=== PATIENT | female | born 1990 | race Caucasian/White ===

== ENCOUNTER 2018-02-13 05:11 | Emergency (ER) | payer OTHER, MEDICAID, SELFPAY ==
[2018-02-13 05:21] VITALS: BP 137/87; PULSE 79; RESP 16; TEMP 36.4; O2SAT 97; BMI 44.9
[2018-02-13] MEDS: DOXYCYCLINE HYCLATE 100 MG TABLET PO (06:01)
--- NOTE | 2018-02-13 06:13 | ED.URI ---
HPI - URI/Sore Throat General Chief Complaint: Upper Respiratory Symptoms Stated Complaint: right side jaw pain into ears and throat Time Seen by Provider: 02/13/18 05:16 Source: patient Mode of arrival: ambulatory Limitations: no limitations History of Present Illness HPI Narrative: 27-year-old nonsmoker presents with a chief complaint multiple upper respiratory complaints including runny nose, sinus congestion, right ear pain, right jaw pain, right throat pain. She was seen and evaluated at another facility few days ago and diagnosed with sinusitis and encouraged to take [id number] decongestants and antihistamines. She reports minimal relief. She has no fever or chills nor any purulent drainage. She denies any cough nor nausea or vomiting MD Complaint: sore throat, rhinorrhea, nasal congestion and sinus pain Onset (ago): minute(s) Duration: constant Severity: mild Relieving factors: nothing Exacerbating factors: nothing Description of mucous: clear Able to tolerate fluids by mouth: Yes Context: sick contacts Associated symptoms: rhinorrhea, nasal congestion and sore throat Treatments prior to arrival: cold medicine Related Data Home Medications Medication Instructions Recorded Confirmed levonorgestrel-ethinyl estrad 1 tab PO QDAY #0 11/14/16 [Vienva] propranolol 20 mg PO QPM #0 11/14/16 Previous Rx's Medication Instructions Recorded nitrofurantoin monohyd/m-cryst 100 mg PO BID #14 cap 11/14/16 [Macrobid] ondansetron [Zofran ODT] 4 mg SUBLINGUAL Q6HP PRN #20 odt 11/14/16 omeprazole 40 mg PO QAM #14 cap 11/26/16 doxycycline hyclate 100 mg PO BID #20 tab 02/13/18 Allergies Allergy/AdvReac Type Severity Reaction Status Date / Time amoxicillin [From AUGMENTIN] Allergy Unknown RASH Unverified 07/29/17 12:46 cefaclor [From CECLOR] Allergy Unknown JOINTS Unverified 07/29/17 12:46 SWELL clavulanic acid Allergy Unknown RASH Unverified 07/29/17 12:46 [From AUGMENTIN] ketorolac [From TORADOL] Allergy Unknown MIGRAINE Unverified 07/29/17 12:46 metoclopramide [From REGLAN] Allergy Unknown JOINTS Unverified 07/29/17 12:46 MOVE tramadol [TRAMADOL] Allergy Unknown MIGRAINE Unverified 07/29/17 12:46 Sulfa (Sulfonamide AdvReac Unknown PROJECTILE Unverified 07/29/17 12:46 Antibiotics) VOMITING [SULFA (SULFONAMIDE ANTIBIOTICS)] Review of Systems Review of Systems All systems reviewed & are unremarkable except as noted in HPI and below Constitutional Denies chills, Denies fever(s), Denies lethargy and Denies weakness Eyes Denies change in vision, Denies eye discharge, Denies irritation and Denies loss of vision ENT Ears, Nose, Mouth, and Throat: Denies change in voice, Reports facial pain, Denies neck pain, Reports post nasal drip, Reports sinus pressure and Reports sore throat Cardiovascular Denies chest pain, Denies irregular heart rhythm, Denies lightheadedness, Denies palpitations, Denies dyspnea, Denies dyspnea on exertion and Denies orthopnea Respiratory Denies cough, Denies dyspnea, Denies dyspnea on exertion and Denies wheezing Gastrointestinal Gastrointestinal: Denies abdominal pain, Denies change in bowel habits, Denies diarrhea, Denies nausea and Denies vomiting Genitourinary Denies hematuria, Denies flank pain, Denies urinary incontinence and Denies urinary urgency Musculoskeletal Denies neck pain Integumentary/Breasts Denies pruritus, Denies erythema, Denies rash and Denies wounds Neurologic Denies confusion, Denies loss of vision and Denies weakness Psychiatric Denies anxiety, Denies confusion, Denies depression, Denies homicidal ideation and Denies suicidal ideation Endocrine Denies palpitations Hematologic/Lymphatic Denies easy bruising Allergic/Immunologic Denies wheezing [facility] Social History Smoking Status: Never smoker Exam Narrative Exam Narrative: GEN: AOx3 and in mild distress EYES: Pupils are equal, round, and reactive to light and accommodation. Extraoccular muscles are intact bilaterally. There is no subconjunctival hemorrhage or exudate. ENT: Right TM is clear but has a mild effusion. There is no bulging, loss of landmarks or erythema. Clear postnasal drip noted but no pharyngeal erythema. Normal dental exam without widespread dental caries or any signs of obvious abscess. No tender lymphadenopathy there is some tenderness to palpation overlying frontal and maxillary sinuses CHEST: Lungs are clear to auscultation bilaterally and free of wheezes, rales, or rhonchi. Heart rate is regular rhythm, there are no murmurs, clicks, rubs, or gallops. There is no chest wall tenderness. ABD: Abdomen is soft and nontender. There is no guarding or rebound. Bowel sounds are normal in all 4 quadrants. There is no mass or organomegaly. EXT: Full painless ROM of all extremities with no loss of sensation or strength. SKIN: Warm, pink, and dry. No erythema or rash Initial Vital Signs Initial Vital Signs: Vital Signs Temperature 97.5 F L 02/13/18 05:21 Pulse Rate 79 02/13/18 05:21 Respiratory Rate 16 02/13/18 05:21 Blood Pressure 137/87 02/13/18 05:21 Pulse Oximetry 97 02/13/18 05:21 Course Orders Ordered: Discontinued Medications Doxycycline Hyclate (Vibramycin) 100 mg PO NOW ONE Stop: 02/13/18 05:31 Last Admin: 02/13/18 06:01 Dose: 100 mg Vital Signs - 8 hr 02/13/18 05:21 Temperature 97.5 F L Pulse Rate 79 Respiratory Rate 16 Blood Pressure 137/87 Pulse Oximetry 97 Discharge Plan Departure Patient Disposition: Home Clinical Impression: Sinusitis Instructions: DI for Sinusitis Activity Restrictions/Additional Instructions: *You have been diagnosed with [ acute sinusitis ] *What to do: *Take medications as directed: your prescription was electronically transmitted to the [facility] in [place] at your request *Follow up with your primary care provider in 2-3 days, call for an appointment. Let them know you were seen in the Emergency Department and that we ask that you be seen in follow up *Return to ER if you should have any new, worsening or concerning symptoms Prescriptions: New doxycycline hyclate 100 mg tablet 100 mg PO BID Qty: 20 RF: 0 No Action levonorgestrel-ethinyl estrad [Vienva] 1 EACH tablet 1 tab PO QDAY Qty: 0 RF: 0 propranolol 20 MG tablet 20 mg PO QPM Qty: 0 RF: 0 ondansetron [Zofran ODT] 4 MG tablet,disintegrating 4 mg Sublingual Q6HP PRNQty: 20 RF: 0 nitrofurantoin monohyd/m-cryst [Macrobid] 100 MG capsule 100 mg PO BID Qty: 14 RF: 0 omeprazole 40 MG capsule,delayed release(DR/EC) 40 mg PO QAM Qty: 14 RF: 0
== END 2018-02-13 06:16 | disposition home or self-care (01) ==
PROVIDERS: Emergency Provider Emergency Medicine
DX: J32.9 Chronic sinusitis, unspecified (principal)
CPT/HCPCS: 99282; 99283

== ENCOUNTER 2019-12-12 17:37 | Observation (INO) | payer OTHER, SELFPAY ==
[2019-12-12] VITALS (8 sets, daily range): BP systolic 126–130; BP diastolic 75–89; PULSE 86–98; RESP 20; TEMP 36.9; O2SAT 91–95; BMI 40.7
--- NOTE | 2019-12-12 18:08 | DI.RAD.S_ITS ---
PROCEDURE: XR CHEST 2V INDICATIONS: shortness of breath TECHNIQUE: 2 views of the chest were acquired. COMPARISON: None. FINDINGS: Surgical changes and devices: None. Lungs and pleura: Lungs are clear. No pleural effusions or pneumothorax. Mediastinum: Mediastinal contours are normal. Heart size is normal. Bones and chest wall: No suspicious bony abnormalities. Soft tissues appear unremarkable. IMPRESSION: Normal chest plain films, without an imaging explanation found for the patient's presenting history. Dictated by: José Miguel Latif M.D. on 12/12/2019 at 17:31 Approved by: José Miguel Latif M.D. on 12/12/2019 at 17:31
--- NOTE | 2019-12-12 20:40 | ED.GENADULT ---
HPI - General Adult General Chief complaint: Upper Respiratory Symptoms Stated complaint: concerns about a PE Time Seen by Provider: 12/12/19 20:02 Source: patient and family Mode of arrival: Ambulatory History of Present Illness HPI narrative: Patient here for multiple complaints. Denies any chest pain. Patient is with her child here being seen as a patient as well. Patient states 2 weeks of watery diarrhea, at least 2 weeks, has history of IBS. Also history of C diff due to antibiotic use in the past. Patient currently on antibiotics for tooth complaint. Patient denies any bloody diarrhea. No foul-smelling. Patient also complains 2 days of dry cough wheezing, seen by primary care/clinic today, coronavirus swab at 3:00 p.m.. Also given a shot of steroid as well. Patient has been using her inhaler without relief. Again, history of asthma. Also history of pulmonary embolism shortly after giving 10 months ago. Complete 4 months of anticoagulation. Patient states this morning she felt more short of breath than usual. Does not feel like her pulmonary embolism in the past. Sent here by the office for CT scan imaging. However she agrees with D-dimer is 1st. She would rather try D-dimer before getting a CT scan Related Data Home Medications Medication Instructions Recorded Confirmed clindamycin HCl 300 mg PO TID 12/13/19 12/13/19 levothyroxine 25 mcg PO DAILY 12/13/19 12/13/19 meloxicam 15 mg PO DAILY 12/13/19 12/13/19 propranolol 20 mg PO DAILY 12/13/19 12/13/19 rizatriptan 10 mg PO DAILY PRN 12/13/19 12/13/19 sertraline 100 mg PO DAILY 12/13/19 12/13/19 Allergies Allergy/AdvReac Type Severity Reaction Status Date / Time amoxicillin [From AUGMENTIN] Allergy Unknown RASH Verified 12/12/19 18:04 cefaclor [From CECLOR] Allergy Unknown JOINTS Verified 12/12/19 18:04 SWELL clavulanic acid Allergy Unknown RASH Verified 12/12/19 18:04 [From AUGMENTIN] ketorolac [From TORADOL] Allergy Unknown MIGRAINE Verified 12/12/19 18:04 metoclopramide [From REGLAN] Allergy Unknown JOINTS Verified 12/12/19 18:04 MOVE tramadol [TRAMADOL] Allergy Unknown MIGRAINE Verified 12/12/19 18:04 Sulfa (Sulfonamide AdvReac Unknown PROJECTILE Verified 12/12/19 18:04 Antibiotics) VOMITING [SULFA (SULFONAMIDE ANTIBIOTICS)] duloxetine [From Cymbalta] AdvReac Anxiety Verified 12/12/19 18:05 gabapentin AdvReac Swelling Verified 12/12/19 18:05 of the Eye pregabalin [From Lyrica] AdvReac Verified 12/12/19 18:05 Review of Systems Review of Systems Narrative: GENERAL: Denies chills, fatigue, malaise, fever, sweats. HEENT: Denies sinus pain, ear pain, sore throat, difficulty swallowing, dizziness. RESPIRATORY: Complains of dyspnea, cough, wheezing, denies hemoptysis, sputum. CARDIOVASCULAR: Denies chest pain, palpitations, orthopnea, edema, GASTROINTESTINAL: Denies nausea, vomiting, abdominal pain, complains of watery diarrhea, denies constipation, melena. : Denies dysuria, frequency, incontinence, hematuria, urinary retention. MUSCULOSKELETAL: denies weakness, joint pain, or bony pain SKIN: Denies rash, skin lesions, or other NEUROLOGIC: Denies weakness, headache, numbness, change in speech, confusion, seizures, incoordination. PSYCHIATRIC: No concerning psychosocial issues. ROS Unobtainable: All systems reviewed & are unremarkable except as noted in HPI and below Patient History Medical History Asthma exacerbation, mild (Acute) Community acquired pneumonia (Acute) Hx gestational diabetes (Acute) Morbid obesity (Chronic) Surgical History History of tonsillectomy and adenoidectomy (Acute) Hx of appendectomy (Acute) Hx of cholecystectomy (Acute) Family History Mother Hypertension Obesity Asthma Father Hypertension Diabetes mellitus Social History household members: spouse and children Smoking Status: Current every day smoker alcohol intake: never Smoking Status: Never smoker alcohol intake frequency: 0-2 drinks per day Substance Use Type: marijuana Exam Narrative Exam Narrative: GENERAL: patient appears stated age. Well-nourished, well-developed patient, in no distress, not toxic HEAD: Atraumatic. Normocephalic. EYES: Pupils equal round and reactive. Extraocular motions intact. No scleral icterus. No injection or drainage. ENT: Nose without bleeding, purulent drainage. Throat without erythema, tonsillar hypertrophy or exudate. Airway patent. NECK: Trachea midline. Non tender CARDIOVASCULAR: Regular rate and rhythm without murmurs, gallops, or rubs. RESPIRATORY: Breath sounds equal bilaterally. There is diffuse bilateral wheezes, no rales, or rhonchi. GASTROINTESTINAL: Abdomen soft, non-tender, nondistended. EXTREMITIES: No edema or joint tenderness. BACK: Nontender without deformity or crepitance. No flank tenderness. NEURO: AOx3. SKIN: No rash or erythema of visible areas PSYCH: Not anxious, is cooperative Initial Vital Signs Initial Vital Signs: Vital Signs Temperature 98.4 F 12/12/19 17:53 Pulse Rate 92 H 12/12/19 17:53 Respiratory Rate 20 12/12/19 17:53 Blood Pressure 126/89 12/12/19 17:53 Pulse Oximetry 94 12/12/19 17:53 Course Course Course Narrative: Patient tachypneic and dyspnea with exertion hallway room air Decision to Admit Date: 12/13/19 Decision to Admit time: 00:25 Orders Ordered: ED Orders 12/12/19 20:27 EKG-12 Lead Stat 12/12/19 20:55 Complete Blood Count AUTO DIFF Stat Comprehensive Metabolic Panel Stat D Dimer Stat Test Serum,Qual Stat Troponin & CK Cardiac Panel Stat 12/12/19 21:49 CT angio chest PE protocol Stat 12/12/19 22:45 Clostridium Difficile Tox PCR Stat Stool Culture Stat 12/13/19 00:35 Blood Culture Stat 12/13/19 00:46 Lactate (Lactic Acid) Stat Procalcitonin Stat 12/13/19 01:48 Arterial Blood Gas Stat Acetaminophen (Tylenol) 650 mg PO Q4HR PRN PRN Reason: Fever/Mild Pain (1-3) Albuterol (Proventil) 1.25 mg INH RTQ4HR PRN PRN Reason: Shortness Of Breath Or Wheezing Albuterol/Ipratropium (Duoneb) 3 ml INH RTQ4HR PRN PRN Reason: Shortness Of Breath Azithromycin (Zithromax) 500 mg PO DAILY KELSEY Sodium Chloride (Normal Saline 0.9%) 1,000 mls @ 100 mls/hr IV CONT [facility] Last Admin: 12/13/19 03:46 Dose: 100 mls/hr Documented by: FREDY Ceftriaxone Sodium/Dextrose (Rocephin) 1 gm in 50 mls @ 100 mls/hr IV Q24H KELSEY Last Admin: 12/13/19 04:07 Dose: 100 mls/hr Documented by: FREDY Ibuprofen (Advil) 600 mg PO Q6HR PRN PRN Reason: Fever/Mild Pain (1-3) Levothyroxine Sodium (Synthroid) 25 mcg PO QACBREAK KELSEY Naloxone HCl (Narcan) 0.2 mg IV Q2MIN PRN PRN Reason: Opiate Reversal Ondansetron HCl (Zofran) 4 mg IV Q8HR PRN PRN Reason: Nausea And Vomiting Propranolol HCl (Inderal) 20 mg PO DAILY [facility] Sertraline HCl (Zoloft) 100 mg PO DAILY [facility] Discontinued Medications Acetaminophen (Tylenol) 650 mg PO NOW ONE Stop: 12/12/19 21:28 Last Admin: 12/12/19 21:42 Dose: 650 mg Documented by: DEIRDRE Hydrocodone Bitart/Acetaminophen ([place] 5/325) 1 tab PO NOW ONE Stop: 12/13/19 00:07 Last Admin: 12/13/19 00:15 Dose: 1 tab Documented by: DEIRDRE Albuterol (Ventolin Hfa Prepack) 1 box [facility] [place] SEEINSTR ONE Stop: 12/12/19 20:21 Last Admin: 12/13/19 03:59 Dose: Not Given Documented by: FREDY Albuterol (Ventolin Hfa Prepack) 1 box [facility] [place] SEEINSTR ONE Stop: 12/12/19 20:25 Last Admin: 12/13/19 03:59 Dose: Not Given Documented by: FREDY Albuterol/Ipratropium (Duoneb) 3 ml INH NOW ONE Stop: 12/12/19 20:07 Last Admin: 12/13/19 03:59 Dose: Not Given Documented by: FREDY Albuterol/Ipratropium (Combivent Respimat) 2 puff INH NOW ONE Stop: 12/12/19 20:12 Last Admin: 12/13/19 04:00 Dose: Not Given Documented by: FREDY Albuterol/Ipratropium (Combivent Prepack) 1 box [facility] SEEINSTR ONE Stop: 12/12/19 20:19 Last Admin: 12/13/19 03:59 Dose: Not Given Documented by: FREDY Benzonatate (Tessalon Perles) 100 mg PO NOW ONE Stop: 12/12/19 21:28 Last Admin: 12/12/19 21:40 Dose: 100 mg Documented by: DEIRDRE Sodium Chloride (Normal Saline 0.9%) 1,000 mls @ 1,000 mls/hr IV BOLUS ONE Stop: 12/12/19 21:26 Last Infusion: 12/12/19 23:26 Dose: 1,000 mls/hr Documented by: Admin: 12/12/19 21:06 Dose: 1,000 mls/hr Documented by: DEIRDRE Levofloxacin (Levaquin) 750 mg in 150 mls @ 100 mls/hr IV Q24H KELSEY Last Admin: 12/13/19 04:00 Dose: Not Given Documented by: FREDY Ceftriaxone Sodium 500 mg/ (Dextrose) 50 mls @ 100 mls/hr IV Q24H KELSEY Morphine Sulfate (Morphine) 4 mg IV NOW ONE Stop: 12/13/19 01:36 Last Admin: 12/13/19 02:09 Dose: 4 mg Documented by: DEIRDRE Ondansetron HCl (Zofran Odt) 4 mg SL NOW ONE Stop: 12/13/19 00:07 Last Admin: 12/13/19 00:11 Dose: 4 mg Documented by: DEIRDRE Reevaluation(s) Reevaluation #1: Patient 92% room air but dyspneic and tachypneic on ambulation in the hallway Time: 00:25 Consultations Consultation #1: Spoke with [facility] sam raya, was wanting to wait for coronavirus results before admitting patient She will start antibiotics when the patient arrives on floor Time: 02:23 Vital Signs Vital signs: Vital Signs - 8 hr 12/12/19 21:15 12/12/19 21:30 12/12/19 22:00 Pulse Rate 86 98 H 95 H Blood Pressure Pulse Oximetry 92 93 92 12/12/19 22:30 12/12/19 22:38 12/12/19 23:00 Pulse Rate 92 H 90 Blood Pressure 130/75 Pulse Oximetry 95 92 91 12/13/19 00:22 12/13/19 00:30 12/13/19 01:00 Pulse Rate 80 79 88 Blood Pressure Pulse Oximetry 94 93 92 12/13/19 01:30 12/13/19 02:00 12/13/19 02:11 Pulse Rate 73 90 78 Blood Pressure 109/57 L Pulse Oximetry 92 89 L 93 Medical Decision Making Differential Diagnosis Differential Diagnosis: Pneumonia versus PE versus asthma exacerbation Lab Data Lab results reviewed: Yes I reviewed the patient's lab results. Result diagrams: 12/12/19 20:55 12/12/19 20:55 Labs: Lab Results 12/12/19 12/12/19 12/12/19 Range/Units 20:55 20:55 20:55 WBC 16.0 H (4.5-11.0) X10^3/uL RBC 5.56 H (4.0-5.2) X10^6/uL Hgb 15.5 (12.0-16.0) g/dL Hct 47.5 H (36-46) % MCV 85.4 (80-100) fL MCH 27.8 (26-34) PG MCHC 32.6 (30-36) % RDW 16.3 H (11.6-14.8) % Plt Count 443 H (150-400) X10^3/uL Neut % (Auto) 90.8 H (50-75) % Lymph % (Auto) 8.3 L (25-40) % Jessamine % (Auto) 0.5 L (3-14) % Eos % (Auto) 0.1 L (2-4) % Baso % (Auto) 0.3 (0-2) % Neut # (Auto) 44880 H (1612-2188) /uL Lymph # (Auto) 1300 (8674-4736) /uL Jessamine # (Auto) 100 (0-900) /uL Eos # (Auto) 0 (0-450) /uL Baso # (Auto) 0 (0-100) /uL D-Dimer 543 H (<230) ng/mL ABG pH (7.35-7.45) ABG pCO2 (35-45) mmHg ABG pO2 (80-100) mmHg ABG HCO3 (22-26) mmol/L ABG Total CO2 (21-31) mmol/L ABG O2 Saturation (95-100) % ABG Base Excess (-2-2) mmol/L FiO2 Sodium 139 (137-145) mmol/L Potassium 4.4 (3.4-5.1) mmol/L Chloride 112 H (98-107) mmol/L Carbon Dioxide 17 L (22-32) mmol/L BUN 17 (7-17) mg/dL Creatinine 0.88 (0.52-1.04) mg/dL Estimated GFR > 60.0 (>60) mL/min BUN/Creatinine Ratio 19.3 (6-22) Glucose 131 H (70-100) mg/dL Lactate (0.7-2.1) mmol/L Calcium 9.4 (8.4-10.2) mg/dL Total Bilirubin 0.5 (0.2-1.3) mg/dL AST 36 (14-36) IU/L ALT 26 (<35) IU/L Alkaline Phosphatase 123 (38-126) U/L Total Creatine Kinase 147 H (30-135) U/L CK-MB (CK-2) 1.34 (<2.37) ng/mL CK-MB (CK-2) Rel Index 0.9 L (1.5-5.0) % Troponin I < 0.012 (0.01-0.034) ng/mL Total Protein 8.8 H (6.3-8.2) g/dL Albumin 4.6 (3.5-5.0) g/dL Globulin 4.2 H (1.7-4.1) g/dL Albumin/Globulin Ratio 1.1 (1.0-2.8) Procalcitonin (<0.5) ng/mL Serum , Qual (Negative) C. difficile Tox (PCR) COVID-19 PCR (Negative) Influenza A (RT-PCR) (NEGATIVE) Influenza B (RT-PCR) (NEGATIVE) 12/12/19 12/12/19 12/12/19 Range/Units 20:55 21:00 21:00 WBC (4.5-11.0) X10^3/uL RBC (4.0-5.2) X10^6/uL Hgb (12.0-16.0) g/dL Hct (36-46) % MCV (80-100) fL MCH (26-34) PG MCHC (30-36) % RDW (11.6-14.8) % Plt Count (150-400) X10^3/uL Neut % (Auto) (50-75) % Lymph % (Auto) (25-40) % [place] % (Auto) (3-14) % Eos % (Auto) (2-4) % Baso % (Auto) (0-2) % Neut # (Auto) (7601-0221) /uL Lymph # (Auto) (1435-3483) /uL Jess[place] # (Auto) (0-900) /uL Eos # (Auto) (0-450) /uL Baso # (Auto) (0-100) /uL D-Dimer (<230) ng/mL ABG pH (7.35-7.45) ABG pCO2 (35-45) mmHg ABG pO2 (80-100) mmHg ABG HCO3 (22-26) mmol/L ABG Total CO2 (21-31) mmol/L ABG O2 Saturation (95-100) % ABG Base Excess (-2-2) mmol/L FiO2 Sodium (137-145) mmol/L Potassium (3.4-5.1) mmol/L Chloride (98-107) mmol/L Carbon Dioxide (22-32) mmol/L BUN (7-17) mg/dL Creatinine (0.52-1.04) mg/dL Estimated GFR (>60) mL/min BUN/Creatinine Ratio (6-22) Glucose (70-100) mg/dL Lactate 0.9 (0.7-2.1) mmol/L Calcium (8.4-10.2) mg/dL Total Bilirubin (0.2-1.3) mg/dL AST (14-36) IU/L ALT (<35) IU/L Alkaline Phosphatase (38-126) U/L Total Creatine Kinase (30-135) U/L CK-MB (CK-2) (<2.37) ng/mL CK-MB (CK-2) Rel Index (1.5-5.0) % Troponin I (0.01-0.034) ng/mL Total Protein (6.3-8.2) g/dL Albumin (3.5-5.0) g/dL Globulin (1.7-4.1) g/dL Albumin/Globulin Ratio (1.0-2.8) Procalcitonin < 0.05 (<0.5) ng/mL Serum , Qual Negative (Negative) C. difficile Tox (PCR) COVID-19 PCR (Negative) Influenza A (RT-PCR) (NEGATIVE) Influenza B (RT-PCR) (NEGATIVE) 12/12/19 12/13/19 12/13/19 Range/Units 22:45 00:31 00:31 WBC (4.5-11.0) X10^3/uL RBC (4.0-5.2) X10^6/uL Hgb (12.0-16.0) g/dL Hct (36-46) % MCV (80-100) fL MCH (26-34) PG MCHC (30-36) % RDW (11.6-14.8) % Plt Count (150-400) X10^3/uL Neut % (Auto) (50-75) % Lymph % (Auto) (25-40) % [place] % (Auto) (3-14) % Eos % (Auto) (2-4) % Baso % (Auto) (0-2) % Neut # (Auto) (5262-9012) /uL Lymph # (Auto) (7691-9545) /uL [place] # (Auto) (0-900) /uL Eos # (Auto) (0-450) /uL Baso # (Auto) (0-100) /uL D-Dimer (<230) ng/mL ABG pH (7.35-7.45) ABG pCO2 (35-45) mmHg ABG pO2 (80-100) mmHg ABG HCO3 (22-26) mmol/L ABG Total CO2 (21-31) mmol/L ABG O2 Saturation (95-100) % ABG Base Excess (-2-2) mmol/L FiO2 Sodium (137-145) mmol/L Potassium (3.4-5.1) mmol/L Chloride (98-107) mmol/L Carbon Dioxide (22-32) mmol/L BUN (7-17) mg/dL Creatinine (0.52-1.04) mg/dL Estimated GFR (>60) mL/min BUN/Creatinine Ratio (6-22) Glucose (70-100) mg/dL Lactate (0.7-2.1) mmol/L Calcium (8.4-10.2) mg/dL Total Bilirubin (0.2-1.3) mg/dL AST (14-36) IU/L ALT (<35) IU/L Alkaline Phosphatase (38-126) U/L Total Creatine Kinase (30-135) U/L CK-MB (CK-2) (<2.37) ng/mL CK-MB (CK-2) Rel Index (1.5-5.0) % Troponin I (0.01-0.034) ng/mL Total Protein (6.3-8.2) g/dL Albumin (3.5-5.0) g/dL Globulin (1.7-4.1) g/dL Albumin/Globulin Ratio (1.0-2.8) Procalcitonin (<0.5) ng/mL Serum , Qual (Negative) C. difficile Tox (PCR) Negative for c. diff COVID-19 PCR Negative (Negative) Influenza A (RT-PCR) Flu a negative (NEGATIVE) Influenza B (RT-PCR) Flu b negative (NEGATIVE) 12/13/19 Range/Units 01:48 WBC (4.5-11.0) X10^3/uL RBC (4.0-5.2) X10^6/uL Hgb (12.0-16.0) g/dL Hct (36-46) % MCV (80-100) fL MCH (26-34) PG MCHC (30-36) % RDW (11.6-14.8) % Plt Count (150-400) X10^3/uL Neut % (Auto) (50-75) % Lymph % (Auto) (25-40) % [place] % (Auto) (3-14) % Eos % (Auto) (2-4) % Baso % (Auto) (0-2) % Neut # (Auto) (1380-3011) /uL Lymph # (Auto) (1204-2041) /uL [place] # (Auto) (0-900) /uL Eos # (Auto) (0-450) /uL Baso # (Auto) (0-100) /uL D-Dimer (<230) ng/mL ABG pH 7.37 (7.35-7.45) ABG pCO2 32.0 L (35-45) mmHg ABG pO2 66 L (80-100) mmHg ABG HCO3 18 L (22-26) mmol/L ABG Total CO2 19 L (21-31) mmol/L ABG O2 Saturation 93 L (95-100) % ABG Base Excess -7.0 L (-2-2) mmol/L FiO2 21 Sodium (137-145) mmol/L Potassium (3.4-5.1) mmol/L Chloride (98-107) mmol/L Carbon Dioxide (22-32) mmol/L BUN (7-17) mg/dL Creatinine (0.52-1.04) mg/dL Estimated GFR (>60) mL/min BUN/Creatinine Ratio (6-22) Glucose (70-100) mg/dL Lactate (0.7-2.1) mmol/L Calcium (8.4-10.2) mg/dL Total Bilirubin (0.2-1.3) mg/dL AST (14-36) IU/L ALT (<35) IU/L Alkaline Phosphatase (38-126) U/L Total Creatine Kinase (30-135) U/L CK-MB (CK-2) (<2.37) ng/mL CK-MB (CK-2) Rel Index (1.5-5.0) % Troponin I (0.01-0.034) ng/mL Total Protein (6.3-8.2) g/dL Albumin (3.5-5.0) g/dL Globulin (1.7-4.1) g/dL Albumin/Globulin Ratio (1.0-2.8) Procalcitonin (<0.5) ng/mL Serum , Qual (Negative) C. difficile Tox (PCR) COVID-19 PCR (Negative) Influenza A (RT-PCR) (NEGATIVE) Influenza B (RT-PCR) (NEGATIVE) Imaging Data Chest x-ray: Radiologist's Impression: Chart Viewer Diagnostics DATE TYPE STATUS REF RANGE/AUTHOR Hx 12/12/19 18:08 José Miguel LatifRadha 29, F0 1990 [facility] ER, Main ED R05 165.1cm 111.13kg BMI: 40.8kg/m? Upper Respiratory Symptoms Search Chart No Data to Display RASH JOINTS SWELL RASH MIGRAINE JOINTS MOVE MIGRAINE PROJECTILE VOMITING Anxiety Swelling of the Eye ONSET Today 20:35 Radha Gordon 29 F [address] [address] XRay Report Signed Patient: Radha Gordon AMR#: [id number] : 1990Acct:[id number] Age/Sex: 29 / FDate of Service: 12/12/19 Loc: ED Accession Number: [id number] Procedure: XR chest 2V Ordering Provider: Toyin Pope MD PROCEDURE: XR CHEST 2V INDICATIONS: shortness of breath TECHNIQUE: 2 views of the chest were acquired. COMPARISON: None. FINDINGS: Surgical changes and devices: None. Lungs and pleura: Lungs are clear. No pleural effusions or pneumothorax. Mediastinum: Mediastinal contours are normal. Heart size is normal. Bones and chest wall: No suspicious bony abnormalities. Soft tissues appear unremarkable. IMPRESSION: Normal chest plain films, without an imaging explanation found for the patient's presenting history. Dictated by: José Miguel Latif M.D. on 12/12/2019 at 17:31 Approved by: José Miguel Latif M.D. on 12/12/2019 at 17:31 CT scan - chest: Radiologist's Impression: CT scan chest no PE, ground-glass consolidation interstitial prominence and adenopathy likely pneumonia. ECG Data Attestation: I personally reviewed and interpreted this ECG as follows: Interpretation: Sinus rhythm, normal EKG, no ST elevation or depression. Ventricular rate 75 MDM Narrative Medical decision making narrative: Dyspnea with exertion, asthma exacerbation/pneumonia, 92% room air but tachypneic and dyspnea, will admit, possible coronavirus, lab pending Discharge Plan Departure Patient Disposition: Admitted as Observation Clinical Impression: Community acquired pneumonia Qualifiers: Laterality: unspecified laterality Qualified Code(s): J18.9 - Pneumonia, unspecified organism Discharge Date/Time: 12/13/19 03:06 Admit Date/Time: 12/13/19 02:22 Admit Provider: Dilcia Raya
[2019-12-12 21:04] LABS: Add Manual Diff / Slide Review NO; Basophils Absolute Auto 0 /uL (0-100); Basophils Percent Auto 0.3 % (0-2); Eosinophils Absolute Auto 0 /uL (0-450); Eosinophils Percent Auto 0.1 % (2-4); Hematocrit 47.5 % (36-46); Hemoglobin 15.5 g/dL (12.0-16.0); Lymphocytes Absolute Auto 1300 /uL (1100-4500); Lymphocytes Percent Auto 8.3 % (25-40); Mean Corpuscular HGB Conc 32.6 % (30-36); Mean Corpuscular Hemoglobin 27.8 PG (26-34); Mean Corpuscular Volume 85.4 fL (80-100); Monocytes Absolute Auto 100 /uL (0-900); Monocytes Percent Auto 0.5 % (3-14); Neutrophils Absolute Auto 14600 /uL (1500-7000); Neutrophils Percent Auto 90.8 % (50-75); Platelet Count 443 X10^3/uL (150-400); Red Blood Cell Count 5.56 X10^6/uL (4.0-5.2); Red Cell Distribution Width 16.3 % (11.6-14.8)
[2019-12-12] MEDS: SODIUM CHLORIDE 0.9% 1,000 ML 1000 ML IV (21:06)
[2019-12-12 21:14] LABS: D Dimer 543 ng/mL (<230)
[2019-12-12 21:15] LABS: Alanine Aminotransferase 26 IU/L (<35); Albumin 4.6 g/dL (3.5-5.0); Albumin Globulin Ratio 1.1 (1.0-2.8); Alkaline Phosphatase 123 U/L (38-126); Aspartate Aminotransferase 36 IU/L (14-36); BUN Creatinine Ratio 19.3 (6-22); Bilirubin Total 0.5 mg/dL (0.2-1.3); Blood Urea Nitrogen 17 mg/dL (7-17); Calcium 9.4 mg/dL (8.4-10.2); Carbon Dioxide 17 mmol/L (22-32); Chloride 112 mmol/L (98-107); Creatine Kinase 147 U/L (30-135); Estimated Glomerular Filt Rate > 60.0 mL/min (>60); Globulin 4.2 g/dL (1.7-4.1); Glucose 131 mg/dL (70-100); Potassium 4.4 mmol/L (3.4-5.1); Sodium 139 mmol/L (137-145); Total Protein 8.8 g/dL (6.3-8.2)
[2019-12-12 21:27] LABS: Troponin I < 0.012 ng/mL (0.01-0.034)
[2019-12-12 21:29] LABS: Pregnancy Test Serum,Qual Negative (Negative)
[2019-12-12 21:31] LABS: CKMB % Relative Index 0.9 % (1.5-5.0); Creatine Kinase MB 1.34 ng/mL (<2.37); HEMOLYSIS 19 (0-50)
[2019-12-12] MEDS: BENZONATATE 100 MG CAPSULE PO (21:40)
[2019-12-12] MEDS: ACETAMINOPHEN 325 MG TABLET 650 MG PO (21:42)
--- NOTE | 2019-12-12 21:49 | DI.CT.S_ITS ---
PROCEDURE: CT ANGIO CHEST PE PROTOCOL INDICATIONS: Dyspnea/history of PE TECHNIQUE: After the administration of intravenous contrast, 2 mm thick sections acquired from the pulmonary apices to the posterior costophrenic angles. 3-dimensional maximum intensity projection (MIP) coronal and sagittal reformats were then acquired through the thorax. For radiation dose reduction, the following was used: automated exposure control, adjustment of mA and/or kV according to patient size. COMPARISON: [facility], CR, XR CHEST 2V, 12/12/2019, 18:08. FINDINGS: Image quality: Excellent. Pulmonary arteries: Pulmonary arteries are normal in size, and demonstrate no intraluminal filling defects to suggest central pulmonary embolism. Lungs and pleura: Lungs are clear. No pleural effusions or pneumothorax. Central and peripheral airways are patent. Mediastinum: Heart size is normal, without pericardial effusion. Mild mediastinal or hilar adenopathy. For example: There is a 1.3 x 2.3 cm prevascular lymph node. A 1.5 cm lymph node is noted in the azygoesophageal recess. Left hilar lymph node measures up to 1.3 cm in diameter. There is a 1.2 cm right hilar lymph node. Thoracic aorta is normal in caliber and enhancement. Esophagus is normal in caliber, without hiatal hernia. Bones and chest wall: No suspicious bony lesions. Ribs and thoracic spine appear intact throughout. Thyroid gland is normal . No axillary or supraclavicular adenopathy. Abdomen: Visualized upper abdominal solid organs appear normal in the early arterial phase of enhancement. Enlarged periportal lymph nodes measure up to 1.7 cm. Gallbladder is surgically absent. IMPRESSION: 1. No evidence for central pulmonary embolism. 2. Ground-glass infiltrates bilaterally more pronounced in lower lobes with mosaic attenuation. Differential diagnoses include hypersensitivity pneumonitis, pulmonary edema and pneumonia. Recommend clinical correlation. 3. Mild mediastinal and hilar lymphadenopathy, and lymphadenopathy in the periportal region. This finding is nonspecific and may be secondary to infectious, inflammatory conditions such as sarcoidosis, or neoplastic etiology such as lymphoma. Recommend clinical correlation and follow up. No significant discrepancy with the night stocker radiology preliminary report. Dictated by: Carter Abdi M.D. on 12/13/2019 at 8:04 Approved by: Carter Abdi M.D. on 12/13/2019 at 8:18
[2019-12-12 23:38] LABS: Clostridium Difficile Tox PCR Negative for C. diff
[2019-12-13] VITALS (14 sets, daily range): BP systolic 109–116; BP diastolic 57–75; PULSE 61–90; RESP 18; TEMP 36.4–36.9; O2SAT 89–97; BMI 40.3
[2019-12-13] MEDS: ONDANSETRON 4 MG ODT SL (00:11)
[2019-12-13] MEDS: HYDROCODONE/ACET 5/325 TABLET 1 TAB PO (00:15)
--- NOTE | 2019-12-13 00:42 | PC.NURSE ---
Ambulated patient around hallway on pulse oximetry. Patient maintained oxygen saturation at 92% but stated she felt that she was working harder to breath than she was when sitting in room. informed.
[2019-12-13 01:09] LABS: Lactate (Lactic Acid) 0.9 mmol/L (0.7-2.1)
--- NOTE | 2019-12-13 01:32 | PC.NURSE ---
Patient states pain medications provided thus far are not providing any type of relief for pain. informed.
[2019-12-13 01:41] LABS: Procalcitonin < 0.05 ng/mL (<0.5)
[2019-12-13] MEDS: MORPHINE 4 MG/ML INJ IV (02:09)
[2019-12-13 02:46] LABS: pH ABG 7.37 (7.35-7.45)
[2019-12-13 02:47] LABS: Fractionated Inspired Oxygen 21; HCO3 ABG 18 mmol/L (22-26); Oxygen Saturation ABG 93 % (95-100); PO2 ABG 66 mmHg (80-100); TCO2 ABG 19 mmol/L (21-31)
--- NOTE | 2019-12-13 03:23 | P.HP_ITS ---
History of Present Illness History of Present Illness Date Patient Seen: 12/13/19 Time Patient Seen: 03:31 Chief complaint: Shortness of breath Narrative: 29 y.o. morbidly obese female w/5 day history of non productive cough progressing to sudden onset shortness of breath today. No sick contacts, no fever, sweats or chills, has mild headache in the setting of chronic migraine headaches. No sore throat, nasal congestion, nausea or vomiting, chest pain though states has a small murmur she has had lifelong, denies dysurea, diarrhea or constipation. She was initially suspected of having a PE so the D-dimer was done and resulted at 543 with a cutoff having been 500 of her age. CTA of the chest was done and presumably negative, report is pending. She normally uses albuterol and does not use a maintenance inhaler however has used one in the past. The patient is afebrile, blood pressure 116/67, heart rate 78, respiratory rate 18, oxygen saturation of 95% on 2 L, she is 110 kg with a BMI of 40.3. She did have elevated white count at 16,000 with a left shift, RBC 5.56, platelet count 443, ABG indicated of compensated respiratory acidosis. Sodium 139, potassium 4.4, chloride 112, bicarb 17, creatinine 0.88, BUN 17, GFR is greater than 60, glucose 131, lactate 0.9, creatinine kinase was slightly elevated at 147, procalcitonin was negative at less than 0.05, COVID-19 19 an influenza a and B are negative. Patient History Medical History Asthma exacerbation, mild (Acute) Community acquired pneumonia (Acute) Hx gestational diabetes (Acute) Morbid obesity (Chronic) Surgical History History of tonsillectomy and adenoidectomy (Acute) Hx of appendectomy (Acute) Hx of cholecystectomy (Acute) Family & Social History Family History Mother Hypertension Obesity Asthma Father Hypertension Diabetes mellitus Social History: household members spouse,children Prior Living Arrangements Apartment/Condo Safety & Behavioral: Feels Safe in Current Yes Environment Been Physically Hurt or No Threatened By a Person Suicidal Ideation Description None Suicide Plan Description No Plan Tobacco & Substance use: Tobacco type cannabis/marijuana Smoking Status Current every day smoker a gram of MJ/daily alcohol intake never alcohol intake frequency 0-2 drinks per day Substance Use Type marijuana Meds Home Medications and Allergies Home Medications Medication Instructions Recorded Confirmed Type clindamycin HCl 300 mg PO TID 12/13/19 12/13/19 History levothyroxine 25 mcg PO DAILY 12/13/19 12/13/19 History meloxicam 15 mg PO DAILY 12/13/19 12/13/19 History propranolol 20 mg PO DAILY 12/13/19 12/13/19 History rizatriptan 10 mg PO DAILY PRN 12/13/19 12/13/19 History sertraline 100 mg PO DAILY 12/13/19 12/13/19 History Allergies Allergy/AdvReac Type Severity Reaction Status Date / Time amoxicillin [From AUGMENTIN] Allergy Unknown RASH Verified 12/12/19 18:04 cefaclor [From CECLOR] Allergy Unknown JOINTS Verified 12/12/19 18:04 SWELL clavulanic acid Allergy Unknown RASH Verified 12/12/19 18:04 [From AUGMENTIN] ketorolac [From TORADOL] Allergy Unknown MIGRAINE Verified 12/12/19 18:04 metoclopramide [From REGLAN] Allergy Unknown JOINTS Verified 12/12/19 18:04 MOVE tramadol [TRAMADOL] Allergy Unknown MIGRAINE Verified 12/12/19 18:04 Sulfa (Sulfonamide AdvReac Unknown PROJECTILE Verified 12/12/19 18:04 Antibiotics) VOMITING [SULFA (SULFONAMIDE ANTIBIOTICS)] duloxetine [From Cymbalta] AdvReac Anxiety Verified 12/12/19 18:05 gabapentin AdvReac Swelling Verified 12/12/19 18:05 of the Eye pregabalin [From Lyrica] AdvReac Verified 12/12/19 18:05 Review of Systems Review of Systems ROS: Yes All systems reviewed with the patient and are negative except as otherwise documented Exam Vital Signs (past 8 hours): - 12/12/19 20:35 12/12/19 21:15 12/12/19 21:30 Temperature Pulse Rate 86 98 H Respiratory Rate Blood Pressure Pulse Oximetry 92 92 93 12/12/19 22:00 12/12/19 22:30 12/12/19 22:38 Temperature Pulse Rate 95 H 92 H Respiratory Rate Blood Pressure 130/75 Pulse Oximetry 92 95 92 12/12/19 23:00 12/13/19 00:22 12/13/19 00:30 Temperature Pulse Rate 90 80 79 Respiratory Rate Blood Pressure Pulse Oximetry 91 94 93 12/13/19 01:00 12/13/19 01:30 12/13/19 02:00 Temperature Pulse Rate 88 73 90 Respiratory Rate Blood Pressure Pulse Oximetry 92 92 89 L 12/13/19 02:11 12/13/19 02:35 12/13/19 02:45 Temperature Pulse Rate 78 61 Respiratory Rate Blood Pressure 109/57 L 109/57 L Pulse Oximetry 93 94 12/13/19 02:52 12/13/19 03:14 Temperature 98.4 F 97.5 F L Pulse Rate 78 Respiratory Rate 18 Blood Pressure 116/67 Pulse Oximetry 96 95 Oxygen Delivery Method Nasal Cannula Oxygen Flow Rate 2 Narrative Exam Narrative: Gen: Alert, oriented, morbidly obese 29 y.o. female, nontoxic appearing HEENT: normocephalic, atraumatic, conjunctiva clear, sclera non-icteric, oral mucosa pink and moist Neck: supple, full ROM, no JVD, trachea is midline Resp: Lungs generalized rales and wheezes bilaterally, on 2 L O2 CV: RRR, no murmur or rubs Abd: soft, non-tender, normoactive BTs Skin: no lesions or rashes, dry and intact Neuro: Alert and oriented X 4 w/no focal deficits. Speech clear and coherent. Extremities: moves all 4 extremities, is ambulatory, negative Natalya?s sign Psyche: normal mood and affect. Objective Labs Result Diagrams: 12/12/19 20:55 12/12/19 20:55 Labs: Laboratory Results - last 24 hr 12/12/19 12/12/19 12/12/19 20:55 20:55 20:55 WBC 16.0 H RBC 5.56 H Hgb 15.5 Hct 47.5 H MCV 85.4 MCH 27.8 MCHC 32.6 RDW 16.3 H Plt Count 443 H Neut % (Auto) 90.8 H Lymph % (Auto) 8.3 L [place] % (Auto) 0.5 L Eos % (Auto) 0.1 L Baso % (Auto) 0.3 Neut # (Auto) 55818 H Lymph # (Auto) 1300 [place] # (Auto) 100 Eos # (Auto) 0 Baso # (Auto) 0 D-Dimer 543 H ABG pH ABG pCO2 ABG pO2 ABG HCO3 ABG Total CO2 ABG O2 Saturation ABG Base Excess FiO2 Sodium 139 Potassium 4.4 Chloride 112 H Carbon Dioxide 17 L BUN 17 Creatinine 0.88 Estimated GFR > 60.0 BUN/Creatinine Ratio 19.3 Glucose 131 H Lactate Calcium 9.4 Total Bilirubin 0.5 AST 36 ALT 26 Alkaline Phosphatase 123 Total Creatine Kinase 147 H CK-MB (CK-2) 1.34 CK-MB (CK-2) Rel Index 0.9 L Troponin I < 0.012 Total Protein 8.8 H Albumin 4.6 Globulin 4.2 H Albumin/Globulin Ratio 1.1 Procalcitonin Serum , Qual C. difficile Tox (PCR) COVID-19 PCR Influenza A (RT-PCR) Influenza B (RT-PCR) 12/12/19 12/12/19 12/12/19 20:55 21:00 21:00 WBC RBC Hgb Hct MCV MCH MCHC RDW Plt Count Neut % (Auto) Lymph % (Auto) [place] % (Auto) Eos % (Auto) Baso % (Auto) Neut # (Auto) Lymph # (Auto) [place] # (Auto) Eos # (Auto) Baso # (Auto) D-Dimer ABG pH ABG pCO2 ABG pO2 ABG HCO3 ABG Total CO2 ABG O2 Saturation ABG Base Excess FiO2 Sodium Potassium Chloride Carbon Dioxide BUN Creatinine Estimated GFR BUN/Creatinine Ratio Glucose Lactate 0.9 Calcium Total Bilirubin AST ALT Alkaline Phosphatase Total Creatine Kinase CK-MB (CK-2) CK-MB (CK-2) Rel Index Troponin I Total Protein Albumin Globulin Albumin/Globulin Ratio Procalcitonin < 0.05 Serum , Qual Negative C. difficile Tox (PCR) COVID-19 PCR Influenza A (RT-PCR) Influenza B (RT-PCR) 12/12/19 12/13/19 12/13/19 22:45 00:31 00:31 WBC RBC Hgb Hct MCV MCH MCHC RDW Plt Count Neut % (Auto) Lymph % (Auto) [place] % (Auto) Eos % (Auto) Baso % (Auto) Neut # (Auto) Lymph # (Auto) [place] # (Auto) Eos # (Auto) Baso # (Auto) D-Dimer ABG pH ABG pCO2 ABG pO2 ABG HCO3 ABG Total CO2 ABG O2 Saturation ABG Base Excess FiO2 Sodium Potassium Chloride Carbon Dioxide BUN Creatinine Estimated GFR BUN/Creatinine Ratio Glucose Lactate Calcium Total Bilirubin AST ALT Alkaline Phosphatase Total Creatine Kinase CK-MB (CK-2) CK-MB (CK-2) Rel Index Troponin I Total Protein Albumin Globulin Albumin/Globulin Ratio Procalcitonin Serum , Qual C. difficile Tox (PCR) Negative for c. diff COVID-19 PCR Negative Influenza A (RT-PCR) Flu a negative Influenza B (RT-PCR) Flu b negative 12/13/19 01:48 WBC RBC Hgb Hct MCV MCH MCHC RDW Plt Count Neut % (Auto) Lymph % (Auto) [place] % (Auto) Eos % (Auto) Baso % (Auto) Neut # (Auto) Lymph # (Auto) [place] # (Auto) Eos # (Auto) Baso # (Auto) D-Dimer ABG pH 7.37 ABG pCO2 32.0 L ABG pO2 66 L ABG HCO3 18 L ABG Total CO2 19 L ABG O2 Saturation 93 L ABG Base Excess -7.0 L FiO2 21 Sodium Potassium Chloride Carbon Dioxide BUN Creatinine Estimated GFR BUN/Creatinine Ratio Glucose Lactate Calcium Total Bilirubin AST ALT Alkaline Phosphatase Total Creatine Kinase CK-MB (CK-2) CK-MB (CK-2) Rel Index Troponin I Total Protein Albumin Globulin Albumin/Globulin Ratio Procalcitonin Serum , Qual C. difficile Tox (PCR) COVID-19 PCR Influenza A (RT-PCR) Influenza B (RT-PCR) Assessment & Plan Assessment & Plan narrative: Alexandria Gordon will be will be placed into observation for initial management and treatment of a community-acquired pneumonia CAP, acute, present on admission -IV Ceftriaxone 1 g daily and azithromycin 500 mg daily Asthma exacerbation, COPD on the differential, acute, present on admission -Albuterol 1.25 mcg neb prn q 4 hours -Duoneb prn q 4 hours Hypothyroidism, chronic and stable, present on admission -Continue home dose of levothyroxine 25 mcg daily Dispo: Plan: Consults: none Patient is observation status as her stay is not likely to exceed 2 midnights. FEN: Saline lock, low sodium diet, BMP and magnesium in the am. VTE prophylaxis: Bilateral SCDs Dispo: probable discharge to home with home nebulizers, oral levaquin and azithromycin Code Status: Full code as discussed with patient COVID-19 COVID-19 status: Negative Result date/Date tested (Pos, Neg/Pending): 12/13/19 Quality VTE Deep Vein Thrombosis/Pulmonary Embolism Present on Admission: No
[2019-12-13] MEDS: SODIUM CHLORIDE 0.9% 1,000 ML 100 ML IV (03:46)
[2019-12-13] MEDS: CEFTRIAXONE 1 GM/50 ML FROZ.PIGGY IV (04:07)
--- NOTE | 2019-12-13 05:33 | PC.NURSE ---
Addendum entered by Sadia Calles R.N. 12/13/19 06:47: Complains of 7/10 pain in stomach/chest related to coughing so medicated with Tylenol. Noted O2 sat at 91% so increased oxygen to 2.5L/min. Original Note: Patient admitted to room 205 from ER per stretcher on 2L/min oxygen. Is alert and oriented. Breath sounds with inspiratory wheezes throughout. Oxygen at 2L/min per NC with sat of 95%; placed on continuous pulse oximetry HRR. Reports intermittent cough producing occasional clear mucus. Denies nausea. BT present and abdomen is soft. Reports she was having frequency loose stools at home related to IBS; c-diff tested in ER and was negative. States she has chronic urinary urgency, frequency and some stress incontinence. Able to turn self in bed. Bilateral calf SCD's placed. Will provide SBA when out of bed due to use of SCD's, continuous pulse oximeter and IVF; patient verbalizes understanding that she is to call prior to getting out of bed. Fall risk score is moderate. Oriented to call light and bed controls.
[2019-12-13 06:19] LABS: Adenovirus Not Detected (Not Detect); Bordetella pertussis Not Detected (Not Detect); Chlamydophila pneumoniae Not Detected (Not Detect); Coronavirus 229E Not Detected (Not Detect); Coronavirus HKU1 Not Detected (Not Detect); Coronavirus NL 63 Not Detected (Not Detect); Coronavirus OC43 Not Detected (Not Detect); Human Metapneumovirus Not Detected (Not Detect); Human Rhinovirus/Enterovirus Not Detected (Not Detect); Influenza A Not Detected (Not Detect); Influenza B Not Detected (Not Detect); Mycoplasma pneumoniae Not Detected (Not Detect); Parainfluenza Virus 1 Not Detected (Not Detect); Parainfluenza Virus 2 Not Detected (Not Detect); Parainfluenza Virus 3 Not Detected (Not Detect); Parainfluenza Virus 4 Not Detected (Not Detect); Respiratory Syncytial Virus Not Detected (Not Detect)
[2019-12-13 06:35] LABS: Lactate (Lactic Acid) 0.9 mmol/L (0.7-2.1)
[2019-12-13 06:36] LABS: BUN Creatinine Ratio 20.7 (6-22); Blood Urea Nitrogen 17 mg/dL (7-17); Calcium 8.8 mg/dL (8.4-10.2); Carbon Dioxide 23 mmol/L (22-32); Chloride 109 mmol/L (98-107); Estimated Glomerular Filt Rate > 60.0 mL/min (>60); Glucose 156 mg/dL (70-100); HEMOLYSIS < 15 (0-50); Potassium 4.1 mmol/L (3.4-5.1); Sodium 141 mmol/L (137-145)
[2019-12-13] MEDS: ACETAMINOPHEN 325 MG TABLET 650 MG PO (06:44)
[2019-12-13 06:59] LABS: Add Manual Diff / Slide Review NO; Basophils Absolute Auto 0 /uL (0-100); Basophils Percent Auto 0.3 % (0-2); Eosinophils Absolute Auto 0 /uL (0-450); Hemoglobin 14.3 g/dL (12.0-16.0); Lymphocytes Absolute Auto 2000 /uL (1100-4500); Mean Corpuscular HGB Conc 32.4 % (30-36); Mean Corpuscular Hemoglobin 27.8 PG (26-34); Mean Corpuscular Volume 85.8 fL (80-100); Monocytes Absolute Auto 700 /uL (0-900); Monocytes Percent Auto 4.7 % (3-14); Neutrophils Absolute Auto 11400 /uL (1500-7000); Platelet Count 401 X10^3/uL (150-400); Red Blood Cell Count 5.13 X10^6/uL (4.0-5.2); Red Cell Distribution Width 16.5 % (11.6-14.8); White Blood Cell Count 14.1 X10^3/uL (4.5-11.0)
[2019-12-13 09:08] LABS: COVID19 -Nasal RAPID Negative (Negative)
--- NOTE | 2019-12-13 09:17 | CM.DANOTE ---
DCP: Case received, EMR reviewed and met with patient. Introduced self and role. Was able to meet with patient to obtain information regarding her baseline activity status and living situation. DCP assessment completed with information currently available. Patient is a 29 year old female who admitted early this morning to the care of the hospitalist team. PCP: Dr Becker. Payer: confirmed: Nafisa Rodrigues. Patient came to the hospital via private vehicle secondary to her having increased shortness of breath. Patient has history of PE, and asthma. Patient indicated that she developed a PE when she was with her child. Patient holds current diagnosis of pneumonia. Met with patient in her room. She is alert and oriented, ambulating independently. She resides in [place] with her 10 month old child and partner. She is independent at baseline. P: DCP to continue to follow. Patient should be able to go home when she is medically stable. Chelly Cross RN/[employer]
[2019-12-13] MEDS: predniSONE 20 MG TABLET 40 MG PO (09:51)
[2019-12-13] MEDS: SERTRALINE 50 MG TABLET 100 MG PO (09:51)
[2019-12-13] MEDS: MAGNESIUM SULFATE 2 GM/50 ML PIGGYBACK IV (09:55)
[2019-12-13] MEDS: OXYCODONE IR 5 MG TABLET PO (09:55)
[2019-12-13] MEDS: AZITHROMYCIN 250 MG TABLET 500 MG PO (10:00)
[2019-12-13] MEDS: PROPRANOLOL 10 MG TABLET 20 MG PO (10:01)
[2019-12-13] MEDS: LEVOTHYROXINE 25 MCG TABLET PO (10:01)
--- NOTE | 2019-12-13 12:12 | P.DS_ITS ---
History of Present Illness History of Present Illness Date Patient Seen: 12/13/19 Time Patient Seen: 12:12 Chief complaint: Shortness of breath Narrative: As per SHARA Matson: 29 y.o. morbidly obese female w/5 day history of non productive cough progressing to sudden onset shortness of breath today. No sick contacts, no fever, sweats or chills, has mild headache in the setting of chronic migraine headaches. No sore throat, nasal congestion, nausea or vomiting, chest pain though states has a small murmur she has had lifelong, denies dysurea, diarrhea or constipation. She was initially suspected of having a PE so the D-dimer was done and resulted at 543 with a cutoff having been 500 of her age. CTA of the chest was done and presumably negative, report is pending. She normally uses albuterol and does not use a maintenance inhaler however has used one in the past. The patient is afebrile, blood pressure 116/67, heart rate 78, respiratory rate 18, oxygen saturation of 95% on 2 L, she is 110 kg with a BMI of 40.3. She did have elevated white count at 16,000 with a left shift, RBC 5.56, platelet count 443, ABG indicated of compensated respiratory acidosis. Sodium 139, potassium 4.4, chloride 112, bicarb 17, creatinine 0.88, BUN 17, GFR is greater than 60, glucose 131, lactate 0.9, creatinine kinase was slightly elevated at 147, procalcitonin was negative at less than 0.05, COVID-19 19 an influenza a and B are negative. Discharge Providers Provider Date of admission: 12/13/19 02:22 Discharge Date: 12/13/19 Discharge provider: Lai Luna DO Summary Hospital Course Discharge Diagnosis: CAP, acute, present on admission Asthma exacerbation, COPD on the differential, acute, present on admission Hypothyroidism, chronic and stable, present on admission Hilar lymphadenopathy, unknown chronicity, present on admission acute hypoxemic respiratory failure, present on admission Hospital Course: This is a 29 year old female with PMH of obesity, asthma, hypothyroid who presented with shortness of breath. CTA was negative for PE but showed bibasilar infiltrates and some hilar lymphadenopathy. She improved with steroids, treatment for possible CAP, and nebulizers. The folloing morning she was off of supplemental oxygen and feeling much improved. She was discharged on oral antibiotic and a steroid for COPD exacerbation. She was also prescribed a nebulizer machine and albuterol nebulizers. She should follow up with her PCP in the next 1-2 weeks. Would consider repeating CT imaging in 6 months depending on symptoms to check hilar lymphadenopathy as this may due to a variety of causes including malignacy, sarcoid, or simply reactive to possible pneumonia. Exam Vital Signs (past 8 hours): - 12/13/19 08:00 12/13/19 09:57 12/13/19 10:30 Temperature 97.6 F Pulse Rate 67 Respiratory Rate 18 Blood Pressure 111/75 Pulse Oximetry 96 94 91 12/13/19 12:07 Temperature Pulse Rate Respiratory Rate Blood Pressure Pulse Oximetry 97 Oxygen Delivery Method Room Air Oxygen Flow Rate 0 Narrative Exam Narrative: Gen: Alert, oriented, morbidly obese 29 y.o. female, nontoxic appearing HEENT: normocephalic, atraumatic, conjunctiva clear, sclera non-icteric, oral mucosa pink and moist Neck: supple, full ROM, no JVD, trachea is midline Resp: Lungs with bilateral expiratory wheezes, no rhonchi or rales. CV: RRR, no murmur or rubs Abd: soft, non-tender, normoactive BTs Skin: no lesions or rashes, dry and intact Neuro: Alert and oriented X 4 w/no focal deficits. Speech clear and coherent. Extremities: moves all 4 extremities, is ambulatory, negative Natalya?s sign Psyche: normal mood and affect. Objective Labs Result Diagrams: 12/13/19 06:02 12/13/19 06:02 Labs: Laboratory Results - last 24 hr 12/12/19 12/12/19 12/12/19 20:55 20:55 20:55 WBC 16.0 H RBC 5.56 H Hgb 15.5 Hct 47.5 H MCV 85.4 MCH 27.8 MCHC 32.6 RDW 16.3 H Plt Count 443 H Neut % (Auto) 90.8 H Lymph % (Auto) 8.3 L [place] % (Auto) 0.5 L Eos % (Auto) 0.1 L Baso % (Auto) 0.3 Neut # (Auto) 26650 H Lymph # (Auto) 1300 [place] # (Auto) 100 Eos # (Auto) 0 Baso # (Auto) 0 D-Dimer 543 H ABG pH ABG pCO2 ABG pO2 ABG HCO3 ABG Total CO2 ABG O2 Saturation ABG Base Excess FiO2 Sodium 139 Potassium 4.4 Chloride 112 H Carbon Dioxide 17 L BUN 17 Creatinine 0.88 Estimated GFR > 60.0 BUN/Creatinine Ratio 19.3 Glucose 131 H Lactate Calcium 9.4 Total Bilirubin 0.5 AST 36 ALT 26 Alkaline Phosphatase 123 Total Creatine Kinase 147 H CK-MB (CK-2) 1.34 CK-MB (CK-2) Rel Index 0.9 L Troponin I < 0.012 Total Protein 8.8 H Albumin 4.6 Globulin 4.2 H Albumin/Globulin Ratio 1.1 Procalcitonin Serum , Qual Chlamy pneumoniae PCR Adenovirus (PCR) B.parapertussis DNA PCR C. difficile Tox (PCR) Coronavirus OC43 (PCR) Coronavirus HKU1 (PCR) Coronavirus 229E (PCR) COVID-19 PCR Coronavirus NL63 (PCR) Human Metapneumovir PCR Influenza A (RT-PCR) Influenza Type A (PCR) Influenza B (RT-PCR) Influenza Type B (PCR) M. pneumoniae (PCR) Parainfluenza 1 (PCR) Parainfluenza 2 (PCR) Parainfluenza 3 (PCR) Parainfluenza 4 (PCR) RSV (PCR) Entero/Rhino (PCR) 12/12/19 12/12/19 12/12/19 20:55 21:00 21:00 WBC RBC Hgb Hct MCV MCH MCHC RDW Plt Count Neut % (Auto) Lymph % (Auto) [place] % (Auto) Eos % (Auto) Baso % (Auto) Neut # (Auto) Lymph # (Auto) [place] # (Auto) Eos # (Auto) Baso # (Auto) D-Dimer ABG pH ABG pCO2 ABG pO2 ABG HCO3 ABG Total CO2 ABG O2 Saturation ABG Base Excess FiO2 Sodium Potassium Chloride Carbon Dioxide BUN Creatinine Estimated GFR BUN/Creatinine Ratio Glucose Lactate 0.9 Calcium Total Bilirubin AST ALT Alkaline Phosphatase Total Creatine Kinase CK-MB (CK-2) CK-MB (CK-2) Rel Index Troponin I Total Protein Albumin Globulin Albumin/Globulin Ratio Procalcitonin < 0.05 Serum , Qual Negative Chlamy pneumoniae PCR Adenovirus (PCR) B.parapertussis DNA PCR C. difficile Tox (PCR) Coronavirus OC43 (PCR) Coronavirus HKU1 (PCR) Coronavirus 229E (PCR) COVID-19 PCR Coronavirus NL63 (PCR) Human Metapneumovir PCR Influenza A (RT-PCR) Influenza Type A (PCR) Influenza B (RT-PCR) Influenza Type B (PCR) M. pneumoniae (PCR) Parainfluenza 1 (PCR) Parainfluenza 2 (PCR) Parainfluenza 3 (PCR) Parainfluenza 4 (PCR) RSV (PCR) Entero/Rhino (PCR) 12/12/19 12/13/19 12/13/19 22:45 00:31 00:31 WBC RBC Hgb Hct MCV MCH MCHC RDW Plt Count Neut % (Auto) Lymph % (Auto) [place] % (Auto) Eos % (Auto) Baso % (Auto) Neut # (Auto) Lymph # (Auto) [place] # (Auto) Eos # (Auto) Baso # (Auto) D-Dimer ABG pH ABG pCO2 ABG pO2 ABG HCO3 ABG Total CO2 ABG O2 Saturation ABG Base Excess FiO2 Sodium Potassium Chloride Carbon Dioxide BUN Creatinine Estimated GFR BUN/Creatinine Ratio Glucose Lactate Calcium Total Bilirubin AST ALT Alkaline Phosphatase Total Creatine Kinase CK-MB (CK-2) CK-MB (CK-2) Rel Index Troponin I Total Protein Albumin Globulin Albumin/Globulin Ratio Procalcitonin Serum , Qual Chlamy pneumoniae PCR Adenovirus (PCR) B.parapertussis DNA PCR C. difficile Tox (PCR) Negative for c. diff Coronavirus OC43 (PCR) Coronavirus HKU1 (PCR) Coronavirus 229E (PCR) COVID-19 PCR Negative Coronavirus NL63 (PCR) Human Metapneumovir PCR Influenza A (RT-PCR) Cancelled Influenza Type A (PCR) Influenza B (RT-PCR) Cancelled Influenza Type B (PCR) M. pneumoniae (PCR) Parainfluenza 1 (PCR) Parainfluenza 2 (PCR) Parainfluenza 3 (PCR) Parainfluenza 4 (PCR) RSV (PCR) Entero/Rhino (PCR) 12/13/19 12/13/19 12/13/19 00:31 01:48 06:02 WBC 14.1 H RBC 5.13 Hgb 14.3 Hct 44.0 MCV 85.8 MCH 27.8 MCHC 32.4 RDW 16.5 H Plt Count 401 H Neut % (Auto) 81.0 H Lymph % (Auto) 14.0 L [place] % (Auto) 4.7 Eos % (Auto) 0.0 L Baso % (Auto) 0.3 Neut # (Auto) 96661 H Lymph # (Auto) 2000 [place] # (Auto) 700 Eos # (Auto) 0 Baso # (Auto) 0 D-Dimer ABG pH 7.37 ABG pCO2 32.0 L ABG pO2 66 L ABG HCO3 18 L ABG Total CO2 19 L ABG O2 Saturation 93 L ABG Base Excess -7.0 L FiO2 21 Sodium Potassium Chloride Carbon Dioxide BUN Creatinine Estimated GFR BUN/Creatinine Ratio Glucose Lactate Calcium Total Bilirubin AST ALT Alkaline Phosphatase Total Creatine Kinase CK-MB (CK-2) CK-MB (CK-2) Rel Index Troponin I Total Protein Albumin Globulin Albumin/Globulin Ratio Procalcitonin Serum , Qual Chlamy pneumoniae PCR Not detected Adenovirus (PCR) Not detected B.parapertussis DNA PCR Not detected C. difficile Tox (PCR) Coronavirus OC43 (PCR) Not detected Coronavirus HKU1 (PCR) Not detected Coronavirus 229E (PCR) Not detected COVID-19 PCR Coronavirus NL63 (PCR) Not detected Human Metapneumovir PCR Not detected Influenza A (RT-PCR) Influenza Type A (PCR) Not detected Influenza B (RT-PCR) Influenza Type B (PCR) Not detected M. pneumoniae (PCR) Not detected Parainfluenza 1 (PCR) Not detected Parainfluenza 2 (PCR) Not detected Parainfluenza 3 (PCR) Not detected Parainfluenza 4 (PCR) Not detected RSV (PCR) Not detected Entero/Rhino (PCR) Not detected 12/13/19 12/13/19 06:02 06:02 WBC RBC Hgb Hct MCV MCH MCHC RDW Plt Count Neut % (Auto) Lymph % (Auto) [place] % (Auto) Eos % (Auto) Baso % (Auto) Neut # (Auto) Lymph # (Auto) [place] # (Auto) Eos # (Auto) Baso # (Auto) D-Dimer ABG pH ABG pCO2 ABG pO2 ABG HCO3 ABG Total CO2 ABG O2 Saturation ABG Base Excess FiO2 Sodium 141 Potassium 4.1 Chloride 109 H Carbon Dioxide 23 BUN 17 Creatinine 0.82 Estimated GFR > 60.0 BUN/Creatinine Ratio 20.7 Glucose 156 H Lactate 0.9 Calcium 8.8 Total Bilirubin AST ALT Alkaline Phosphatase Total Creatine Kinase CK-MB (CK-2) CK-MB (CK-2) Rel Index Troponin I Total Protein Albumin Globulin Albumin/Globulin Ratio Procalcitonin Serum , Qual Chlamy pneumoniae PCR Adenovirus (PCR) B.parapertussis DNA PCR C. difficile Tox (PCR) Coronavirus OC43 (PCR) Coronavirus HKU1 (PCR) Coronavirus 229E (PCR) COVID-19 PCR Coronavirus NL63 (PCR) Human Metapneumovir PCR Influenza A (RT-PCR) Influenza Type A (PCR) Influenza B (RT-PCR) Influenza Type B (PCR) M. pneumoniae (PCR) Parainfluenza 1 (PCR) Parainfluenza 2 (PCR) Parainfluenza 3 (PCR) Parainfluenza 4 (PCR) RSV (PCR) Entero/Rhino (PCR) Discharge Plan Discharge Plan Patient Disposition: Home Discharge comment: You were admitted to the hospital with shortness of breath and briefly required oxygen. You improved with antibiotics and steroids. You are being discharged home with a short course of steroids and antibiotics which you should complete. You are also being prescribed a nebulizer machine and albuterol for this machine. Please continue your other medications. Your imaging is possibly consistent with an atypical pneumonia, but please follow up with her primary care provider as additional or repeat imaging may be needed depending on your symptoms. Discharge orders & Medications Prescriptions: New prednisone 20 mg Tablet 40 mg PO DAILY 4 Days Qty: 8 RF: 0 albuterol sulfate 1.25 mg/3 mL solution for nebulization 1.25 mg continuous nebulization [id number] PRN (Reason: Shortness Of Breath Or Wheezing) 30 Days Qty: 90 RF: 0 (DME) nebulizer and compressor Device See Rx Instructions .ROUTE .MEDSUPPLY Qty: 1 RF: 0 levofloxacin 750 mg tablet 750 mg PO DAILY 5 Days Qty: 5 RF: 0 Continued levothyroxine 25 mcg Tablet 25 mcg PO DAILY RF: 0 propranolol 20 mg Tablet 20 mg PO DAILY RF: 0 meloxicam 15 mg Tablet 15 mg PO DAILY RF: 0 sertraline 100 mg tablet 100 mg PO DAILY RF: 0 rizatriptan 10 mg tablet 10 mg PO DAILY PRN (Reason: Migraine Headache) RF: 0 Discontinued clindamycin HCl 300 mg capsule 300 mg PO TID RF: 0 Discharge Health Status Health Concerns: asthma exacerbation atypical pneumonia Diet/Activity/Treatments Activity: As tolerated Visit Report/Discharge Packet Instructions: DI for Asthma -- Adult, DI for Pneumonia -- Adult, How to Use a Nebulizer, Prednisone, Albuterol Oral Inhalation, Levofloxacin Visit Report Forms: Patient Portal/API, Stroke Signs & Symptoms Discharge Data Attending Provider: Dilcia Hightower Admit Date/Time: 12/13/19 02:22 Discharges patient from system. Discharge Date/Time: 12/13/19 16:01 Quality VTE Deep Vein Thrombosis/Pulmonary Embolism Present on Admission: No
--- NOTE | 2019-12-13 12:13 | PC.NURSE ---
Addendum entered by Winnie Randolph R.N. 12/13/19 15:55: Discharge: Late entry IV dc'd intact. Reviewed all d/c instructions thoroughly with patient. Instructed that she should have 3 scripts and a nebulizer machine to roll picker at her pharmacy. Instructed to take Prednisone and Levaquin as ordered and for full course. Per Dr Luna, patient is ok to continue with the rest of her course of the other antibiotic she was taking for an infected tooth (despite the fact that it says to stop it on the med list)- he was not aware that it was for a tooth and wasn't sure the Levaquin would cover that. Instructed to f/u with PCP per usual and PRN, and to return to hospital or see PCP with any worsening of symptoms. Patient verbalized understanding of all d/c instructions and stated no further questions. All belongings sent with her at discharge, walked out to private vehicle accompanied by nursing staff. Original Note: Shift summary: Alert and oriented X3. Lungs with scattered expiratory wheezes. Intermittent cough, producing clear sputum. C/O pain in chest and stomach from coughing, medicated with Oxycodone per e-mar for the same. Room air sats 90-91% asleep, 96-97% awake. HRR, distant to auscultation. IV saline locked after Mag rider completed. Patient sitting up in bed working on lunch. SBA to BR, calls appropriately with needs/concerns. Light and belongings within reach. Bag of personal belongings (including cellphone, zipper joiner, laptop) brought in from home today.
== END 2019-12-13 16:01 | disposition home or self-care (01) ==
LOC: ED 12-13 00:26 → AC 12-13 03:33
PROVIDERS: Admitting Provider Nurse Practitioner Family; Emergency Provider Emergency Medicine; Referring Provider Emergency Medicine; Visit Provider Nurse Practitioner Family
DX: J45.901 Unspecified asthma with (acute) exacerbation (principal); E66.01 Morbid (severe) obesity due to excess calories; F12.90 Cannabis use, unspecified, uncomplicated; E03.9 Hypothyroidism, unspecified; Z11.59 Encounter for screening for other viral diseases
CPT/HCPCS: 36415; 36600; 71046; 71275; 80048; 80053; 82550; 82553; 82805; 83605; 84145; 84484; 84703; 85025; 85379; 87040; 87045; 87493; 87633; 87635; 87899; 93005; 94640; 94762; 96361; 96365; 96375; 99284; G0378; J2270; Q9967

== ENCOUNTER 2019-12-26 22:19 | Emergency (ER) | payer OTHER, SELFPAY ==
[2019-12-13 03:15] VITALS: BMI 40.3
[2019-12-26 22:28] VITALS: BP 136/74; PULSE 82; RESP 18; TEMP 37; O2SAT 98
--- NOTE | 2019-12-26 22:34 | DI.CT.S_ITS ---
PROCEDURE: CT ANGIO CHEST PE PROTOCOL INDICATIONS: Sharp Left chest pain, like prior PE TECHNIQUE: After the administration of intravenous contrast, 2 mm thick sections acquired from the pulmonary apices to the posterior costophrenic angles. 3-dimensional maximum intensity projection (MIP) coronal and sagittal reformats were then acquired through the thorax. For radiation dose reduction, the following was used: automated exposure control, adjustment of mA and/or kV according to patient size. COMPARISON: [facility], CT, CT ANGIO CHEST PE PROTOCOL, 12/12/2019, 22:18. FINDINGS: Image quality: Suboptimal heterogeneous opacification of the pulmonary vessels. Unchanged presumed scarring/atelectasis in the right posterior sulcus. Ill-defined sub segmental filling defects within the right and left upper lobe pulmonary arteries, which could reflect small pulmonary emboli. Suboptimal evaluation given heterogeneous pulmonary artery opacification. Lungs and pleura: Scattered subsegmental atelectasis and/or scarring. No focal consolidation. . No pleural effusions or pneumothorax. Central and peripheral airways are patent. Mediastinum: Heart size is normal, without pericardial effusion. Unchanged bilateral hilar mediastinal lymphadenopathy. Subcarinal lymph nodes are unchanged. There are enlarged periportal lymph nodes as before. 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 Esophagus is normal in caliber, without hiatal hernia. Bones and chest wall: No suspicious bony lesions. Ribs and thoracic spine appear intact throughout. Thyroid gland negative . Shotty bilateral axillary lymph nodes. Abdomen: Visualized upper abdominal solid organs appear normal in the early arterial phase of enhancement. IMPRESSION: Findings suggest ill-defined subsegmental upper lobe pulmonary emboli. Previous ground-glass diffuse ground-glass opacities have resolved since the prior study. No new acute consolidation. Unchanged mediastinal and hilar lymphadenopathy Findings concordant with the preliminary study interpretation provided at the time of the exam. Dictated by: Guillermo Hightower M.D. on 12/27/2019 at 8:16 Approved by: Guillermo Hightower M.D. on 12/27/2019 at 8:31
--- NOTE | 2019-12-26 22:35 | ED_ITS ---
HPI - Chest Pain General Chief Complaint: Chest Pain Stated Complaint: SOB/sharp pain upper chest and left arm/hx of PE Time Seen by Provider: 12/26/19 22:20 Source: patient Mode of arrival: Ambulatory Limitations: no limitations History of Present Illness HPI narrative: 29-year-old female nonsmoker with history of hypothyroidism presents with a chief complaint of left anterior and lateral chest pain with radiation into her left arm. She states it has been present over the course of the day and in the presence of a dry and hacking cough. She states is worse with a deep breath and with motion and is very reminiscent of of pulmonary embolism she had after the delivery of her child about 10 months ago. She had been on blood thinners but has since been fully evaluated demonstration of resolved PE has been taken off. She denies any fever chills. She denies nausea, vomiting or diarrhea. She denies any dysuria, frequency or urgency. She denies exposure to ill persons or those to be known to have COVID-19. Patient denies any injury or overuse. She was admitted here relatively recently for bilateral pneumonia at which point she had a negative [place] it swabbed. Related Data Home Medications Medication Instructions Recorded Confirmed levothyroxine 25 mcg PO DAILY 12/13/19 12/13/19 meloxicam 15 mg PO DAILY 12/13/19 12/13/19 propranolol 20 mg PO DAILY 12/13/19 12/13/19 rizatriptan 10 mg PO DAILY PRN 12/13/19 12/13/19 sertraline 100 mg PO DAILY 12/13/19 12/13/19 Previous Rx's Medication Instructions Recorded albuterol sulfate 1.25 mg CONTINUOUS NEBULIZATION 12/13/19 RTQ4HR PRN 30 Days #90 ml nebulizer and compressor #1 each 12/13/19 rivaroxaban [Xarelto] 20 mg PO DAILY #30 tab 12/26/19 Allergies Allergy/AdvReac Type Severity Reaction Status Date / Time amoxicillin [From AUGMENTIN] Allergy Unknown RASH Verified 12/12/19 18:04 cefaclor [From CECLOR] Allergy Unknown JOINTS Verified 12/12/19 18:04 SWELL clavulanic acid Allergy Unknown RASH Verified 12/12/19 18:04 [From AUGMENTIN] ketorolac [From TORADOL] Allergy Unknown MIGRAINE Verified 08/24/20 18:04 metoclopramide [From REGLAN] Allergy Unknown JOINTS Verified 12/12/19 18:04 MOVE tramadol [TRAMADOL] Allergy Unknown MIGRAINE Verified 12/12/19 18:04 Sulfa (Sulfonamide AdvReac Unknown PROJECTILE Verified 12/12/19 18:04 Antibiotics) VOMITING [SULFA (SULFONAMIDE ANTIBIOTICS)] duloxetine [From Cymbalta] AdvReac Anxiety Verified 12/12/19 18:05 gabapentin AdvReac Swelling Verified 12/12/19 18:05 of the Eye pregabalin [From Lyrica] AdvReac Verified 12/12/19 18:05 Review of Systems Constitutional Constitutional: Denies chills, Reports fatigue, Denies fever(s), Denies frequent falls, Denies lethargy and Denies weakness Eyes Eyes: Denies change in vision, Denies eye discharge, Denies irritation and Denies loss of vision ENT Ears, Nose, Mouth, and Throat: Denies change in voice, Denies dizziness, Denies neck pain, Denies sore throat and Denies throat swelling Cardiovascular Cardiovascular: Reports chest pain, Denies irregular heart rhythm, Denies lig htheadedness, Denies palpitations, Denies dyspnea, Denies dyspnea on exertion and Denies orthopnea Respiratory Respiratory: Reports cough, Reports pain on inspiration, Denies dyspnea, Denies dyspnea on exertion and Denies wheezing Gastrointestinal Gastrointestinal: Denies abdominal pain, Denies change in bowel habits, Denies diarrhea, Denies nausea and Denies vomiting Musculoskeletal Musculoskeletal: Denies neck pain and Denies numbness Integumentary/Breasts Skin/Breast: Denies pruritus, Denies erythema, Denies rash and Denies wounds Neurologic Neurologic: Denies behavioral changes, Denies confusion, Denies dizziness, Denies frequent falls, Denies loss of vision, Denies numbness and Denies weakness Psychiatric Psychiatric: Denies anxiety, Denies behavioral changes, Denies confusion, Denies depression, Denies homicidal ideation and Denies suicidal ideation Endocrine Endocrine: Reports fatigue, Denies flushing and Denies palpitations Hematologic/Lymphatic Hematologic/Lymphatic: Denies easy bruising Allergic/Immunologic Allergic/Immunologic: Denies urticaria, Denies throat swelling and Denies wheezing Patient History Medical History (Updated 12/26/19 @ 23:46 by Felipe Ortiz DO) Asthma exacerbation, mild (Acute) Community acquired pneumonia (Acute) Hx gestational diabetes (Acute) Morbid obesity (Chronic) Surgical History History of tonsillectomy and adenoidectomy (Acute) Hx of appendectomy (Acute) Hx of cholecystectomy (Acute) Family History Mother Hypertension Obesity Asthma Father Hypertension Diabetes mellitus Social History household members: spouse and children Smoking Status: Current every day smoker alcohol intake: never Smoking Status: Current every day smoker alcohol intake frequency: 0-2 drinks per day Substance Use Type: marijuana Exam Narrative Exam Narrative: GENERAL: [29] year old patient appears stated age. Well- nourished, well-developed patient, in mild distress. HEAD: Atraumatic. Normocephalic. EYES: Pupils equal round and reactive. Extraocular motions intact. No scleral icterus. No injection or drainage. ENT: Nose without bleeding, purulent drainage. Throat without erythema, tonsillar hypertrophy or exudate. Airway patent. NECK: Trachea midline. Non tender CARDIOVASCULAR: Regular rate and rhythm without murmurs, gallops, or rubs. Left anterior chest tender to palpation, this same pain that brought her in RESPIRATORY: Clear to auscultation. Breath sounds equal bilaterally. No wheezes, rales, or rhonchi. GASTROINTESTINAL: Abdomen soft, non-tender, nondistended. EXTREMITIES: No edema or joint tenderness. BACK: Nontender without deformity or crepitance. No flank tenderness. NEURO: AOx3. SKIN: No rash or erythema of visible areas Initial Vital Signs Initial Vital Signs: Vital Signs Temperature 98.6 F 12/26/19 22:28 Pulse Rate 82 12/26/19 22:28 Respiratory Rate 18 12/26/19 22:28 Blood Pressure 136/74 12/26/19 22:28 Pulse Oximetry 98 12/26/19 22:28 Course Orders Ordered: ED Orders 12/26/19 22:34 CT angio chest PE protocol Stat EKG-12 Lead Stat 12/26/19 22:35 Complete Blood Count AUTO DIFF Stat Comprehensive Metabolic Panel Stat Lipase Stat NT-proBNP (BNP-Adult 18+) Stat Prothrombin Time INR Stat Troponin & CK Cardiac Panel Stat Sodium Chloride (Normal Saline 0.9%) 1,000 mls @ 150 mls/hr IV CONT KELSEY Last Admin: 12/26/19 22:40 Dose: 150 mls/hr Documented by: CHASE Discontinued Medications Morphine Sulfate (Morphine) 4 mg IV NOW ONE Stop: 12/26/19 23:16 Last Admin: 12/26/19 23:43 Dose: 4 mg Documented by: WANDER Vital Signs Vital signs: Vital Signs - 8 hr 12/26/19 22:28 12/26/19 22:49 12/26/19 23:01 Temperature 98.6 F Pulse Rate 82 70 77 Respiratory Rate 18 17 19 Blood Pressure 136/74 Pulse Oximetry 98 100 95 12/26/19 23:30 12/27/19 00:00 Temperature Pulse Rate 70 78 Respiratory Rate 27 H 24 Blood Pressure 136/74 Pulse Oximetry 99 98 MDM - Chest Pain Lab Data Result diagrams: 12/26/19 22:35 12/26/19 22:35 Labs: Lab Results 12/26/19 12/26/19 12/26/19 Range/Units 22:35 22:35 22:35 WBC 13.6 H (4.5-11.0) X10^3/uL RBC 4.84 (4.0-5.2) X10^6/uL Hgb 13.8 (12.0-16.0) g/dL Hct 41.9 (36-46) % MCV 86.4 (80-100) fL MCH 28.5 (26-34) PG MCHC 33.0 (30-36) % RDW 17.3 H (11.6-14.8) % Plt Count 293 (150-400) X10^3/uL Neut % (Auto) 57.9 (50-75) % Lymph % (Auto) 30.9 (25-40) % [place] % (Auto) 8.7 (3-14) % Eos % (Auto) 0.7 L (2-4) % Baso % (Auto) 1.8 (0-2) % Neut # (Auto) 7900 H (9752-6720) /uL Lymph # (Auto) 4200 (3444-4299) /uL [place] # (Auto) 1200 H (0-900) /uL Eos # (Auto) 100 (0-450) /uL Baso # (Auto) 200 H (0-100) /uL PT 11.5 (10.1-12.7) SECONDS INR 1.0 (0.9-1.3) Sodium 138 (137-145) mmol/L Potassium 4.2 (3.4-5.1) mmol/L Chloride 104 (98-107) mmol/L Carbon Dioxide 31 (22-32) mmol/L BUN 21 H (7-17) mg/dL Creatinine 1.01 (0.52-1.04) mg/dL Estimated GFR > 60.0 (>60) mL/min BUN/Creatinine Ratio 20.8 (6-22) Glucose 93 (70-100) mg/dL Calcium 8.8 (8.4-10.2) mg/dL Total Bilirubin 0.3 (0.2-1.3) mg/dL AST 28 (14-36) IU/L ALT 17 (<35) IU/L Alkaline Phosphatase 78 (38-126) U/L Total Creatine Kinase 44 (30-135) U/L CK-MB (CK-2) TNP CK-MB (CK-2) Rel Index TNP Troponin I < 0.012 (0.01-0.034) ng/mL NT-Pro-B Natriuret Pep 410 H (<125) pg/mL Total Protein 7.4 (6.3-8.2) g/dL Albumin 4.1 (3.5-5.0) g/dL Globulin 3.3 (1.7-4.1) g/dL Albumin/Globulin Ratio 1.2 (1.0-2.8) Lipase 229 (23-300) U/L Imaging Data CT scan - chest: Radiologist's Impression: B/L upper lobe small PE, resolution of prior groundglass consolidation MDM Narrative Medical decision making narrative: patient in no extremis. CT a month ago showed resolution of PEs, but today's scan shows a recurrence. This is consistent with her history and physical. NO evidence of R heart strain. She is absolutely certain she has Xarelto at home and would prefer to go home and take that and follow up with her park maintenance technician. This is appropriate. She's been given return precautions Discharge Plan Departure Patient Disposition: Home Clinical Impression: Pulmonary embolism Qualifiers: Pulmonary embolism type: unspecified Chronicity: acute Acute cor pulmonale presence: without acute cor pulmonale Qualified Code(s): I26.99 - Other pulmonary embolism without acute cor pulmonale Activity Restrictions/Additional Instructions: *You have been diagnosed with [acute small bilateral pulmonary embolisms] *What to do: *Take medications as directed: Please resume taking the Xarelto that you have at home at previous dosing. *Follow up with your park maintenance technician, call tomorrow morning for an appointment *Return to ER if you should have any new, worsening or concerning symptoms Prescriptions: New Xarelto 20 mg tablet 20 mg PO DAILY Qty: 30 RF: 0 No Action levothyroxine 25 mcg Tablet 25 mcg PO DAILY RF: 0 propranolol 20 mg Tablet 20 mg PO DAILY RF: 0 meloxicam 15 mg Tablet 15 mg PO DAILY RF: 0 sertraline 100 mg tablet 100 mg PO DAILY RF: 0 rizatriptan 10 mg tablet 10 mg PO DAILY PRN (Reason: Migraine Headache) RF: 0 albuterol sulfate 1.25 mg/3 mL solution for nebulization 1.25 mg continuous nebulization RTQ4HR PRN (Reason: Shortness Of Breath Or Wheezing) 30 Days Qty: 90 RF: 0 (DME) nebulizer and compressor Device See Rx Instructions .ROUTE .MEDSUPPLY Qty: 1 RF: 0 Referrals: Vicky Becker PA-C [Primary Care Provider] -
[2019-12-26 22:40] LABS: Add Manual Diff / Slide Review NO; Basophils Absolute Auto 200 /uL (0-100); Basophils Percent Auto 1.8 % (0-2); Eosinophils Absolute Auto 100 /uL (0-450); Eosinophils Percent Auto 0.7 % (2-4); Hematocrit 41.9 % (36-46); Hemoglobin 13.8 g/dL (12.0-16.0); Lymphocytes Absolute Auto 4200 /uL (1100-4500); Lymphocytes Percent Auto 30.9 % (25-40); Mean Corpuscular Hemoglobin 28.5 PG (26-34); Mean Corpuscular Volume 86.4 fL (80-100); Monocytes Absolute Auto 1200 /uL (0-900); Monocytes Percent Auto 8.7 % (3-14); Neutrophils Absolute Auto 7900 /uL (1500-7000); Neutrophils Percent Auto 57.9 % (50-75); Platelet Count 293 X10^3/uL (150-400); Red Blood Cell Count 4.84 X10^6/uL (4.0-5.2); Red Cell Distribution Width 17.3 % (11.6-14.8); White Blood Cell Count 13.6 X10^3/uL (4.5-11.0)
[2019-12-26] MEDS: SODIUM CHLORIDE 0.9% 1,000 ML 150 ML IV (22:40)
[2019-12-26 22:49] VITALS: PULSE 70; RESP 17; O2SAT 100
[2019-12-26 22:50] LABS: Prothrombin Time 11.5 SECONDS (10.1-12.7)
[2019-12-26 22:54] LABS: Alanine Aminotransferase 17 IU/L (<35); Albumin 4.1 g/dL (3.5-5.0); Albumin Globulin Ratio 1.2 (1.0-2.8); Alkaline Phosphatase 78 U/L (38-126); Aspartate Aminotransferase 28 IU/L (14-36); BUN Creatinine Ratio 20.8 (6-22); Bilirubin Total 0.3 mg/dL (0.2-1.3); Blood Urea Nitrogen 21 mg/dL (7-17); Calcium 8.8 mg/dL (8.4-10.2); Carbon Dioxide 31 mmol/L (22-32); Chloride 104 mmol/L (98-107); Creatine Kinase 44 U/L (30-135); Estimated Glomerular Filt Rate > 60.0 mL/min (>60); Globulin 3.3 g/dL (1.7-4.1); Glucose 93 mg/dL (70-100); HEMOLYSIS 26 (0-50); Lipase 229 U/L (23-300); Potassium 4.2 mmol/L (3.4-5.1); Sodium 138 mmol/L (137-145); Total Protein 7.4 g/dL (6.3-8.2)
[2019-12-26 23:01] VITALS: PULSE 77; RESP 19; O2SAT 95
[2019-12-26 23:06] LABS: NT-proBNP (BNP-Adult 18+) 410 pg/mL (<125); Troponin I < 0.012 ng/mL (0.01-0.034)
[2019-12-26 23:30] VITALS: PULSE 70; RESP 27; O2SAT 99
[2019-12-26] MEDS: MORPHINE 4 MG/ML INJ IV (23:43)
[2019-12-27] VITALS: BP 136/74; PULSE 78; RESP 24; O2SAT 98
[2019-12-27 00:30] VITALS: PULSE 67; RESP 20; O2SAT 98
== END 2019-12-27 00:39 | disposition home or self-care (01) ==
PROVIDERS: Emergency Provider Emergency Medicine; PCP Physician Assistant
DX: I26.99 Other pulmonary embolism without acute cor pulmonale (principal); R06.02 Shortness of breath; Z79.01 Long term (current) use of anticoagulants
CPT/HCPCS: 36415; 71275; 80053; 82550; 82553; 83690; 83880; 84484; 85025; 85610; 93005; 96374; 99284; J2270; Q9967

== ENCOUNTER 2019-12-29 19:10 | Emergency (ER) | payer OTHER, SELFPAY ==
[2019-12-13 03:15] VITALS: BMI 40.3
[2019-12-29 19:15] VITALS: BP 119/72; PULSE 67; RESP 17; TEMP 36.8; O2SAT 98
--- NOTE | 2019-12-29 19:31 | ED.CHESTPAIN ---
HPI - Chest Pain General Chief Complaint: Chest Pain Stated Complaint: pain from PE Time Seen by Provider: 12/29/19 19:31 History of Present Illness HPI narrative: 29-year-old woman with history of pulmonary embolism 10 months ago with resolution. Had been on Xarelto. Was diagnosed with factor 5 Leiden deficiency. Has stopped this and had recurrent chest pain on December [address] scan showing new bilateral upper lobe pulmonary emboli. She was discharged as she was hemodynamically stable without any evidence of acute right heart strain and had Xarelto at home as well as follow-up with her injection molder. She returns today complaining of increasing pain in the left anterior chest radiating into the left shoulder and right posterior lung renee. She is not dyspneic, noting palpitations, having increasing cough nor fevers. Because of the Xarelto she is unable to take nonsteroidals. She is has been taking Tylenol and is finding this ineffective for pain control. Related Data Home Medications Medication Instructions Recorded Confirmed levothyroxine 25 mcg PO DAILY 12/13/19 12/13/19 meloxicam 15 mg PO DAILY 12/13/19 12/13/19 propranolol 20 mg PO DAILY 12/13/19 12/13/19 rizatriptan 10 mg PO DAILY PRN 12/13/19 12/13/19 sertraline 100 mg PO DAILY 12/13/19 12/13/19 Previous Rx's Medication Instructions Recorded albuterol sulfate 1.25 mg CONTINUOUS NEBULIZATION 12/13/19 RTQ4HR PRN 30 Days #90 ml nebulizer and compressor #1 each 12/13/19 rivaroxaban [Xarelto] 20 mg PO DAILY #30 tab 12/26/19 Allergies Allergy/AdvReac Type Severity Reaction Status Date / Time amoxicillin [From AUGMENTIN] Allergy Unknown RASH Verified 12/12/19 18:04 cefaclor [From CECLOR] Allergy Unknown JOINTS Verified 12/12/19 18:04 SWELL clavulanic acid Allergy Unknown RASH Verified 12/12/19 18:04 [From AUGMENTIN] ketorolac [From TORADOL] Allergy Unknown MIGRAINE Verified 12/12/19 18:04 metoclopramide [From REGLAN] Allergy Unknown JOINTS Verified 12/12/19 18:04 MOVE tramadol [TRAMADOL] Allergy Unknown MIGRAINE Verified 12/12/19 18:04 Sulfa (Sulfonamide AdvReac Unknown PROJECTILE Verified 12/12/19 18:04 Antibiotics) VOMITING [SULFA (SULFONAMIDE ANTIBIOTICS)] duloxetine [From Cymbalta] AdvReac Anxiety Verified 12/12/19 18:05 gabapentin AdvReac Swelling Verified 12/12/19 18:05 of the Eye pregabalin [From Lyrica] AdvReac Verified 12/12/19 18:05 Review of Systems Review of Systems Narrative: Pertinent positive and negative findings as per HPI Remainder of review of systems is otherwise unremarkable for Constitutional: Fevers, chills, weakness ENT: No sore throat, neck pain, ear pain GI: vomiting, diarrhea, change in bowel habits, black or bloody stools : Dysuria, hematuria, flank pain MS: Muscle weakness, numbness, joint swelling or warmth Patient History Medical History Asthma exacerbation, mild (Acute) Community acquired pneumonia (Acute) Factor V deficiency (Acute) Hx gestational diabetes (Acute) Morbid obesity (Chronic) Pulmonary embolism (Acute) Surgical History History of tonsillectomy and adenoidectomy (Acute) Hx of appendectomy (Acute) Hx of cholecystectomy (Acute) Family History Mother Hypertension Obesity Asthma Father Hypertension Diabetes mellitus Social History household members: spouse and children Smoking Status: Current every day smoker alcohol intake: never Smoking Status: Current every day smoker alcohol intake frequency: 0-2 drinks per day Substance Use Type: marijuana Exam Narrative Exam Narrative: General: Pale, mild distress secondary to pain but speaking in full sentences without any acute respiratory distress. HEENT: Moist mucous membranes, normal sclera with reactive pupils, Neck: No JVD, supple Respiratory: Lungs are clear to auscultation, no wheezing no rales no rhonchi. Full and symmetrical air movement Chest: Non reproducible chest pain in the left upper anterior chest and right posterior chest wall Cardiac: Regular rate and rhythm no murmurs no bruits Abdomen: Soft nontender good bowel tones, no flank pain Extremities: No trauma, no lower extremity edema Psych: Cooperative, appropriate insight and affect Initial Vital Signs Initial Vital Signs: Vital Signs Temperature 98.2 F 12/29/19 19:15 Pulse Rate 67 12/29/19 19:15 Respiratory Rate 17 12/29/19 19:15 Blood Pressure 119/72 12/29/19 19:15 Pulse Oximetry 98 12/29/19 19:15 Course Orders Ordered: Discontinued Medications Hydromorphone HCl (Dilaudid) 1 mg IV NOW ONE Stop: 12/29/19 19:47 Last Admin: 12/29/19 19:57 Dose: 1 mg Documented by: RIRI Hydromorphone HCl (Dilaudid) 1 mg IV NOW ONE Stop: 12/29/19 20:46 Last Admin: 12/29/19 20:52 Dose: 1 mg Documented by: RIRI Sodium Chloride (Normal Saline 0.9%) 1,000 mls @ 1,000 mls/hr IV BOLUS ONE Stop: 12/29/19 20:45 Last Admin: 12/29/19 19:57 Dose: 1,000 mls/hr Documented by: RIRI Ondansetron HCl (Zofran) 4 mg IV NOW ONE Stop: 12/29/19 19:47 Last Admin: 12/29/19 19:56 Dose: 4 mg Documented by: RIRI Oxycodone/Acetaminophen (Percocet 5/325) 2 tab PO NOW ONE Stop: 12/29/19 20:46 Last Admin: 12/29/19 20:52 Dose: 2 tab Documented by: RIRI Vital Signs Vital signs: Vital Signs - 8 hr 12/29/19 19:15 12/29/19 20:17 12/29/19 20:30 Temperature 98.2 F Pulse Rate 67 64 56 L Respiratory Rate 17 Blood Pressure 119/72 Pulse Oximetry 98 95 96 12/29/19 20:35 12/29/19 21:00 Temperature Pulse Rate 55 L 67 Respiratory Rate Blood Pressure 123/80 121/77 Pulse Oximetry 96 93 MDM - Chest Pain Medical Records Data Attestation: I reviewed the patient's medical records. ECG Data Attestation: I personally reviewed and interpreted this ECG as follows: Interpretation: Normal sinus rhythm at a rate of 62 Normal intervals, normal axis No acute ST-T wave changes MDM Narrative Medical decision making narrative: 29-year-old woman with recently diagnosed bilateral upper lobe pulmonary emboli with increasing pain similar to the 1st time she had pulmonary emboli. She is currently on Xarelto, she is hemodynamically stable and she is finding that Tylenol is inadequate control the pain. She is hurting enough slightly nauseated, has lost her appetite and is having difficulty drinking secondary to pain. Pain is much better controlled after IV Dilaudid fluids Zofran. Will send her home with Percocet for the next couple days along with a nice discussion regarding opiates, constipation and addiction. She is safe for home discharge Discharge Plan Departure Patient Disposition: Home Clinical Impression: Pulmonary embolism Qualifiers: Pulmonary embolism type: multiple subsegmental (without acute cor pulmonale) Qualified Code(s): I26.94 - Multiple subsegmental pulmonary emboli without acute cor pulmonale Chest pain Qualifiers: Chest pain type: pleurodynia Qualified Code(s): R07.81 - Pleurodynia Instructions: DI for Pulmonary Embolism Activity Restrictions/Additional Instructions: Thank you for coming in today I am sorry to hear having more pleuritic and chest wall pain with the pulmonary embolism that was diagnosed 2 days ago. Your given fluids, nausea medicine and IV narcotic in the emergency department with significant relief of your pain. I am going to discharge home with a short course of Percocet to use for the acute pain in the next 1-2 days. After that please do use Tylenol. I encourage you to keep all outpatient schedule follow-up appointments is already arranged and continue with your Xarelto. I wish you the best Prescriptions: No Action levothyroxine 25 mcg Tablet 25 mcg PO DAILY RF: 0 propranolol 20 mg Tablet 20 mg PO DAILY RF: 0 meloxicam 15 mg Tablet 15 mg PO DAILY RF: 0 sertraline 100 mg tablet 100 mg PO DAILY RF: 0 rizatriptan 10 mg tablet 10 mg PO DAILY PRN (Reason: Migraine Headache) RF: 0 albuterol sulfate 1.25 mg/3 mL solution for nebulization 1.25 mg continuous nebulization RTQ4HR PRN (Reason: Shortness Of Breath Or Wheezing) 30 Days Qty: 90 RF: 0 (DME) nebulizer and compressor Device See Rx Instructions .ROUTE .MEDSUPPLY Qty: 1 RF: 0 Xarelto 20 mg tablet 20 mg PO DAILY Qty: 30 RF: 0 Referrals: Vicky Becker PA-C [Primary Care Provider] -
[2019-12-29] MEDS: ONDANSETRON 4 MG/2 ML INJ IV (19:56)
[2019-12-29] MEDS: HYDROMORPHONE 1 MG INJ IV ×2 (19:57→20:52)
[2019-12-29] MEDS: SODIUM CHLORIDE 0.9% 1,000 ML 1000 ML IV (19:57)
[2019-12-29 20:17] VITALS: PULSE 64; O2SAT 95
[2019-12-29 20:30] VITALS: PULSE 56; O2SAT 96
[2019-12-29 20:35] VITALS: BP 123/80; PULSE 55; O2SAT 96
[2019-12-29] MEDS: OXYCODONE/ACETAMINOPHEN 5/325 TABLET 2 TAB PO (20:52)
[2019-12-29 21:00] VITALS: BP 121/77; PULSE 67; O2SAT 93
[2019-12-29 21:30] VITALS: BP 114/66; PULSE 63; RESP 15; O2SAT 95
[2019-12-29] MEDS: OXYCODONE/APAP 5/325 PREPACK 1 BOTTLE MISC (21:39)
== END 2019-12-29 21:42 | disposition home or self-care (01) ==
PROVIDERS: Emergency Provider Emergency Medicine; PCP Physician Assistant
DX: I26.94 Multiple subsegmental thrombotic pulmonary emboli without acute cor pulmonale (principal); R07.81 Pleurodynia; R11.0 Nausea
CPT/HCPCS: 93005; 96361; 96374; 96375; 96376; 99284; J1170; J2405

== ENCOUNTER 2020-03-03 16:07 | Emergency (ER) | payer OTHER, SELFPAY ==
[2019-12-13 03:15] VITALS: BMI 40.3
[2020-03-03] VITALS (11 sets, daily range): BP systolic 112–150; BP diastolic 53–98; PULSE 51–73; RESP 9–29; TEMP 36.2; O2SAT 93–98; BMI 41.5
--- NOTE | 2020-03-03 16:33 | DI.RAD.S_ITS ---
PROCEDURE: XR CHEST 1V INDICATIONS: chest pain TECHNIQUE: One view of the chest was acquired. COMPARISON: [facility], CT, CT ANGIO CHEST PE PROTOCOL, 12/26/2019, 22:47. [facility], CR, XR CHEST 2V, 12/12/2019, 18:08. FINDINGS: Surgical changes and devices: None. Lungs and pleura: Lungs are clear. No pleural effusions or pneumothorax. Mediastinum: Mediastinal contours appear normal. Heart size is normal. Bones and chest wall: No suspicious bony lesions. Overlying soft tissues appear unremarkable. IMPRESSION: No acute cardiopulmonary abnormality. Dictated by: Edwin Brooks M.D. on 03/03/2020 at 17:26 Approved by: Edwin Brooks M.D. on 03/03/2020 at 17:27
[2020-03-03 16:39] LABS: Add Manual Diff / Slide Review NO; Basophils Absolute Auto 100 /uL (0-100); Basophils Percent Auto 1.1 % (0-2); Eosinophils Absolute Auto 400 /uL (0-450); Eosinophils Percent Auto 3.6 % (2-4); Hematocrit 45.8 % (36-46); Hemoglobin 15.2 g/dL (12.0-16.0); Lymphocytes Absolute Auto 3400 /uL (1100-4500); Lymphocytes Percent Auto 29.8 % (25-40); Mean Corpuscular HGB Conc 33.1 % (30-36); Mean Corpuscular Volume 87.7 fL (80-100); Monocytes Absolute Auto 800 /uL (0-900); Monocytes Percent Auto 7.3 % (3-14); Neutrophils Absolute Auto 6700 /uL (1500-7000); Neutrophils Percent Auto 58.2 % (50-75); Platelet Count 427 X10^3/uL (150-400); Red Blood Cell Count 5.22 X10^6/uL (4.0-5.2); Red Cell Distribution Width 16.9 % (11.6-14.8); White Blood Cell Count 11.5 X10^3/uL (4.5-11.0)
[2020-03-03] MEDS: MORPHINE 4 MG/ML INJ IV (16:41)
[2020-03-03 16:42] LABS: INR 1.4 (0.9-1.3); Prothrombin Time 16.2 SECONDS (10.1-12.7)
[2020-03-03] MEDS: ONDANSETRON 4 MG/2 ML INJ IV ×2 (16:44→17:40)
[2020-03-03] MEDS: SODIUM CHLORIDE 0.9% 1,000 ML 150 ML IV (16:44)
[2020-03-03 16:45] LABS: PTT Partial Thromboplastin Tim 43 SECONDS (26.4-36.2)
[2020-03-03 16:46] LABS: Alanine Aminotransferase 21 IU/L (<35); Albumin 4.5 g/dL (3.5-5.0); Albumin Globulin Ratio 1.2 (1.0-2.8); Alkaline Phosphatase 99 U/L (38-126); Aspartate Aminotransferase 32 IU/L (14-36); BUN Creatinine Ratio 12.6 (6-22); Bilirubin Total 0.6 mg/dL (0.2-1.3); Blood Urea Nitrogen 11 mg/dL (7-17); Calcium 9.3 mg/dL (8.4-10.2); Carbon Dioxide 28 mmol/L (22-32); Chloride 108 mmol/L (98-107); Creatine Kinase 46 U/L (30-135); Estimated Glomerular Filt Rate > 60.0 mL/min (>60); Globulin 3.8 g/dL (1.7-4.1); Glucose 96 mg/dL (70-100); HEMOLYSIS < 15 (0-50); Lipase 106 U/L (23-300); Potassium 3.7 mmol/L (3.4-5.1); Sodium 141 mmol/L (137-145); Total Protein 8.3 g/dL (6.3-8.2)
[2020-03-03 16:58] LABS: NT-proBNP (BNP-Adult 18+) 160 pg/mL (<125); Troponin I < 0.012 ng/mL (0.01-0.034)
--- NOTE | 2020-03-03 16:58 | DI.CT.S_ITS ---
PROCEDURE: CT ANGIO CHEST PE PROTOCOL INDICATIONS: chest pain, hx pe TECHNIQUE: After the administration of intravenous contrast, 2 mm thick sections acquired from the pulmonary apices to the posterior costophrenic angles. 3-dimensional maximum intensity projection (MIP) coronal and sagittal reformats were then acquired through the thorax. For radiation dose reduction, the following was used: automated exposure control, adjustment of mA and/or kV according to patient size. COMPARISON: [facility], CT, CT ANGIO CHEST PE PROTOCOL, 12/26/2019, 22:47. [facility], CT, CT ANGIO CHEST PE PROTOCOL, 12/12/2019, 22:18. FINDINGS: Image quality: Excellent. Pulmonary arteries: Pulmonary arteries are normal in size, and demonstrate no intraluminal filling defects to suggest central pulmonary embolism. Lungs and pleura: There is mild dependent atelectasis in the lung bases. No acute airspace opacity is seen. No pleural effusions or pneumothorax. Central and peripheral airways are patent. Mediastinum: Heart size is normal, without pericardial effusion. Small mediastinal lymph nodes are mildly increased in number, not significantly changed when compared to the CT from 12/26/2019.. 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 Esophagus is normal in caliber, without hiatal hernia. Bones and chest wall: No suspicious bony lesions. Ribs and thoracic spine appear intact throughout. Thyroid gland is unremarkable. Bilateral axillary lymph nodes are increased in number, but not significantly enlarged, similar to the prior exam from 12/26/2019. Abdomen: Status post cholecystectomy. Diminutive appearance of the spleen may be related to prior trauma. Visualized upper abdominal solid organs appear normal in the early arterial phase of enhancement. IMPRESSION: 1. No acute pulmonary embolus. 2. Increased number of small mediastinal, axillary, and periportal lymph nodes has not significantly changed when compared to the CT from 12/26/2019. Dictated by: Edwin Brooks M.D. on 03/03/2020 at 17:43 Approved by: Edwin Brooks M.D. on 03/03/2020 at 17:55
[2020-03-03 17:20] LABS: Amorphous Sediment Urine 1+; Bacteria Urine Moderate (10-30); Mucus Urine 2+ (Negative); RBC Urine 0-1/HPF (0-5/HPF); Squamous Epithelial Cell Urine 5-10 /HPF (0-5/HPF); WBC Urine 10-30/HPF (0-5/HPF)
[2020-03-03 17:21] LABS: Culture Indicated Urine Specimen Cultured
--- NOTE | 2020-03-03 18:37 | ED_ITS ---
HPI - Chest Pain <Laureen HooverDANOP-BC - Last Filed: 03/03/20 20:05> General Chief Complaint: Chest Pain Stated Complaint: Right Lung Pain Time Seen by Provider: 03/03/20 16:14 Source: patient Mode of arrival: Ambulatory Limitations: no limitations and language barrier History of Present Illness HPI narrative: The patient is a 29-year-old female nonsmoker with history of factor 5 deficiency and pulmonary embolism who presents with a chief complaint of right-sided chest pain. She states that she was most recently diagnosed with pulmonary embolism in December, and has since been on Xarelto. She does note that she developed right-sided chest pain with deep inspiration today. She has not taken anything for the pain. She does note that she has been taking her Xarelto correctly. She denies any fevers. She denies any cough or congestion. She denies any lightheadedness or dizziness. Related Data Home Medications Medication Instructions Recorded Confirmed levothyroxine 25 mcg PO DAILY 12/13/19 12/13/19 meloxicam 15 mg PO DAILY 12/13/19 12/13/19 propranolol 20 mg PO DAILY 12/13/19 12/13/19 rizatriptan 10 mg PO DAILY PRN 12/13/19 12/13/19 sertraline 100 mg PO DAILY 12/13/19 12/13/19 Previous Rx's Medication Instructions Recorded nebulizer and compressor #1 each 12/13/19 rivaroxaban [Xarelto] 20 mg PO DAILY #30 tab 12/26/19 cyclobenzaprine 10 mg PO TID PRN #14 tab 03/03/20 Allergies Allergy/AdvReac Type Severity Reaction Status Date / Time amoxicillin [From AUGMENTIN] Allergy Unknown RASH Verified 03/03/20 16:13 cefaclor [From CECLOR] Allergy Unknown JOINTS Verified 03/03/20 16:13 SWELL clavulanic acid Allergy Unknown RASH Verified 03/03/20 16:13 [From AUGMENTIN] ketorolac [From TORADOL] Allergy Unknown MIGRAINE Verified 03/03/20 16:13 metoclopramide [From REGLAN] Allergy Unknown JOINTS Verified 03/03/20 16:13 MOVE tramadol [TRAMADOL] Allergy Unknown MIGRAINE Verified 03/03/20 16:13 Sulfa (Sulfonamide AdvReac Unknown PROJECTILE Verified 03/03/20 16:13 Antibiotics) VOMITING [SULFA (SULFONAMIDE ANTIBIOTICS)] duloxetine [From Cymbalta] AdvReac Anxiety Verified 03/03/20 16:13 gabapentin AdvReac Swelling Verified 03/03/20 16:13 of the Eye pregabalin [From Lyrica] AdvReac Verified 03/03/20 16:13 Review of Systems <RICHARD Duran - Last Filed: 03/03/20 20:05> Review of Systems Narrative: GENERAL: Denies chills, fatigue, malaise, fever, sweats. HEENT: Denies sinus pain, ear pain, sore throat, difficulty swallowing, dizziness. RESPIRATORY: See HPI CARDIOVASCULAR: See HPI GASTROINTESTINAL: Denies nausea, vomiting, abdominal pain, diarrhea, constipation, melena. : Denies dysuria, frequency, incontinence, hematuria, urinary retention. MUSCULOSKELETAL: denies weakness, joint pain, or bony pain SKIN: Denies rash, skin lesions, or other NEUROLOGIC: Denies weakness, headache, numbness, change in speech, confusion, seizures, incoordination. PSYCHIATRIC: No concerning psychosocial issues. 12 point review of systems is negative except for those stated above Patient History <RICHARD Duran - Last Filed: 03/03/20 20:05> Medical History Asthma exacerbation, mild (Acute) Community acquired pneumonia (Acute) Factor V deficiency (Acute) Hx gestational diabetes (Acute) Morbid obesity (Chronic) Pulmonary embolism (Inactive) Surgical History History of tonsillectomy and adenoidectomy (Acute) Hx of appendectomy (Acute) Hx of cholecystectomy (Acute) Family History Mother Hypertension Obesity Asthma Father Hypertension Diabetes mellitus Social History household members: spouse and children Smoking Status: Never smoker alcohol intake: never Smoking Status: Never smoker alcohol intake frequency: 0-2 drinks per day Substance Use Type: marijuana Exam <RICHARD Duran - Last Filed: 03/03/20 20:05> Narrative Exam Narrative: GENERAL: This is a well-nourished, well-developed patient, in no acute distress HEAD: Atraumatic. Normocephalic. No temporal or scalp tenderness. EYES: Pupils equal round and reactive. Extraocular motions intact. No scleral icterus. No injection or drainage. ENT: Nose without bleeding, purulent drainage or septal hematoma. Throat without erythema, tonsillar hypertrophy or exudate. Uvula midline. Airway patent. NECK: Trachea midline. No JVD or lymphadenopathy. Supple, nontender, no meningeal signs. CARDIOVASCULAR: Regular rate and rhythm RESPIRATORY: Clear to auscultation. Breath sounds equal bilaterally. No wheezes, rales, or rhonchi. No cough. No increased respiratory effort. No accessory muscle use. Pain to palpation of right lateral chest wall. GASTROINTESTINAL: Abdomen soft, non-tender, nondistended. No hepato- splenomegaly, or palpable masses. No guarding. Active bowel sounds all 4 quadrants. EXTREMITIES: No clubbing, cyanosis, or edema. No joint tenderness, effusion, or edema noted. BACK: Nontender without deformity or crepitance. No flank tenderness. NEURO: AOx3. SKIN: No rash or erythema on visible skin Initial Vital Signs Initial Vital Signs: Vital Signs Temperature 97.1 F L 03/03/20 16:13 Pulse Rate 72 03/03/20 16:13 Respiratory Rate 18 03/03/20 16:13 Blood Pressure 150/89 H 03/03/20 16:13 Pulse Oximetry 98 03/03/20 16:13 <Maya Leahy DO - Last Filed: 03/04/20 08:08> Initial Vital Signs Initial Vital Signs: Vital Signs Temperature 97.1 F L 03/03/20 16:13 Pulse Rate 72 03/03/20 16:13 Respiratory Rate 18 03/03/20 16:13 Blood Pressure 150/89 H 03/03/20 16:13 Pulse Oximetry 98 03/03/20 16:13 Scores <RICHARD Duran - Last Filed: 03/03/20 20:05> GCS Rosario coma scale eye opening: Spontaneous Rosario coma scale verbal response: Orientated [place] coma scale motor response: Obey commands [place] coma scale total score: 15 Course <RICHARD Duran - Last Filed: 03/03/20 20:05> Orders Ordered: Discontinued Medications Cyclobenzaprine HCl (Flexeril) 10 mg PO NOW ONE Stop: 03/03/20 18:52 Last Admin: 03/03/20 19:09 Dose: 10 mg Documented by: TABBY Cyclobenzaprine HCl (Flexeril 10 Mg Prepack) 1 bottle MISC SEEINSTR ONE Stop: 03/03/20 19:40 Last Admin: 03/03/20 20:00 Dose: 1 bottle Documented by: TABBY Sodium Chloride (Normal Saline 0.9%) 1,000 mls @ 150 mls/hr IV CONT KELSEY Last Infusion: 03/03/20 20:00 Dose: 0 mls/hr Documented by: Admin: 03/03/20 16:44 Dose: 150 mls/hr Documented by: DINA Morphine Sulfate (Morphine) 4 mg IV NOW ONE Stop: 03/03/20 16:34 Last Admin: 03/03/20 16:41 Dose: 4 mg Documented by: DINA Ondansetron HCl (Zofran) 4 mg IV NOW ONE Stop: 03/03/20 16:34 Last Admin: 03/03/20 16:44 Dose: 4 mg Documented by: DINA Ondansetron HCl (Zofran) 4 mg IV NOW ONE Stop: 03/03/20 17:35 Last Admin: 03/03/20 17:40 Dose: 4 mg Documented by: DINA Oxycodone/Acetaminophen (Percocet 5/325) 1 tab PO NOW ONE Stop: 03/03/20 18:52 Last Admin: 03/03/20 19:09 Dose: 1 tab Documented by: TABBY Oxycodone/Acetaminophen (Endocet 5/325 Prepack) 1 bottle MISC SEEINSTR ONE Stop: 03/03/20 19:40 Last Admin: 03/03/20 20:00 Dose: 1 bottle Documented by: TABBY Pantoprazole Sodium (Protonix) 40 mg IV NOW ONE Stop: 03/03/20 18:42 Last Admin: 03/03/20 19:09 Dose: 40 mg Documented by: TABBY Vital Signs Vital signs: Vital Signs - 8 hr 03/03/20 16:13 Temperature 97.1 F L Pulse Rate 72 Respiratory Rate 18 Blood Pressure 150/89 H Pulse Oximetry 98 <Maya Leahy, DO - Last Filed: 03/04/20 08:08> Orders Ordered: Discontinued Medications Cyclobenzaprine HCl (Flexeril) 10 mg PO NOW ONE Stop: 03/03/20 18:52 Last Admin: 03/03/20 19:09 Dose: 10 mg Documented by: TABBY Cyclobenzaprine HCl (Flexeril 10 Mg Prepack) 1 bottle MISC SEEINSTR ONE Stop: 03/03/20 19:40 Last Admin: 03/03/20 20:00 Dose: 1 bottle Documented by: TABBY Sodium Chloride (Normal Saline 0.9%) 1,000 mls @ 150 mls/hr IV CONT KELSEY Last Infusion: 03/03/20 20:00 Dose: 0 mls/hr Documented by: Admin: 03/03/20 16:44 Dose: 150 mls/hr Documented by: DINA Morphine Sulfate (Morphine) 4 mg IV NOW ONE Stop: 03/03/20 16:34 Last Admin: 03/03/20 16:41 Dose: 4 mg Documented by: DINA Ondansetron HCl (Zofran) 4 mg IV NOW ONE Stop: 03/03/20 16:34 Last Admin: 03/03/20 16:44 Dose: 4 mg Documented by: DINA Ondansetron HCl (Zofran) 4 mg IV NOW ONE Stop: 03/03/20 17:35 Last Admin: 03/03/20 17:40 Dose: 4 mg Documented by: DINA Oxycodone/Acetaminophen (Percocet 5/325) 1 tab PO NOW ONE Stop: 03/03/20 18:52 Last Admin: 03/03/20 19:09 Dose: 1 tab Documented by: TABBY Oxycodone/Acetaminophen (Endocet 5/325 Prepack) 1 bottle MISC SEEINSTR ONE Stop: 03/03/20 19:40 Last Admin: 03/03/20 20:00 Dose: 1 bottle Documented by: TABBY Pantoprazole Sodium (Protonix) 40 mg IV NOW ONE Stop: 03/03/20 18:42 Last Admin: 03/03/20 19:09 Dose: 40 mg Documented by: TABBY Vital Signs Vital signs: Vital Signs - 8 hr 03/03/20 16:13 Temperature 97.1 F L Pulse Rate 72 Respiratory Rate 18 Blood Pressure 150/89 H Pulse Oximetry 98 MDM - Chest Pain <LANCE Duran - Last Filed: 03/03/20 20:05> Differential Diagnosis Differential diagnosis: Likely atypical chest pain, st elevation myocardial infarction, costochondritis and chest pain Lab Data Attestation: I reviewed the patient's lab results. Result diagrams: 03/03/20 16:25 03/03/20 16:25 Labs: Lab Results 03/03/20 03/03/20 03/03/20 Range/Units 16:25 16:25 16:25 WBC 11.5 H (4.5-11.0) X10^3/uL RBC 5.22 H (4.0-5.2) X10^6/uL Hgb 15.2 (12.0-16.0) g/dL Hct 45.8 (36-46) % MCV 87.7 (80-100) fL MCH 29.0 (26-34) PG MCHC 33.1 (30-36) % RDW 16.9 H (11.6-14.8) % Plt Count 427 H (150-400) X10^3/uL Neut % (Auto) 58.2 (50-75) % Lymph % (Auto) 29.8 (25-40) % Bates % (Auto) 7.3 (3-14) % Eos % (Auto) 3.6 (2-4) % Baso % (Auto) 1.1 (0-2) % Neut # (Auto) 6700 (6362-3414) /uL Lymph # (Auto) 3400 (3859-3433) /uL Bates # (Auto) 800 (0-900) /uL Eos # (Auto) 400 (0-450) /uL Baso # (Auto) 100 (0-100) /uL PT 16.2 H (10.1-12.7) SECONDS INR 1.4 H (0.9-1.3) APTT 43 H (26.4-36.2) SECONDS Sodium 141 (137-145) mmol/L Potassium 3.7 (3.4-5.1) mmol/L Chloride 108 H (98-107) mmol/L Carbon Dioxide 28 (22-32) mmol/L BUN 11 (7-17) mg/dL Creatinine 0.87 (0.52-1.04) mg/dL Estimated GFR > 60.0 (>60) mL/min BUN/Creatinine Ratio 12.6 (6-22) Glucose 96 (70-100) mg/dL Calcium 9.3 (8.4-10.2) mg/dL Total Bilirubin 0.6 (0.2-1.3) mg/dL AST 32 (14-36) IU/L ALT 21 (<35) IU/L Alkaline Phosphatase 99 (38-126) U/L Total Creatine Kinase 46 (30-135) U/L CK-MB (CK-2) TNP CK-MB (CK-2) Rel Index TNP Troponin I < 0.012 (0.01-0.034) ng/mL NT-Pro-B Natriuret Pep 160 H (<125) pg/mL Total Protein 8.3 H (6.3-8.2) g/dL Albumin 4.5 (3.5-5.0) g/dL Globulin 3.8 (1.7-4.1) g/dL Albumin/Globulin Ratio 1.2 (1.0-2.8) Lipase 106 (23-300) U/L Urine RBC (0-5/HPF) Urine WBC (0-5/HPF) Ur Squamous Epith Cells (0-5/HPF) Amorphous Sediment Urine Bacteria (None) Urine Mucus (Negative) Ur Culture Indicated? COVID-19 PCR (Negative) 03/03/20 03/03/20 Range/Units 16:45 18:13 WBC (4.5-11.0) X10^3/uL RBC (4.0-5.2) X10^6/uL Hgb (12.0-16.0) g/dL Hct (36-46) % MCV (80-100) fL MCH (26-34) PG MCHC (30-36) % RDW (11.6-14.8) % Plt Count (150-400) X10^3/uL Neut % (Auto) (50-75) % Lymph % (Auto) (25-40) % Bates % (Auto) (3-14) % Eos % (Auto) (2-4) % Baso % (Auto) (0-2) % Neut # (Auto) (1254-0466) /uL Lymph # (Auto) (5342-1521) /uL Bates # (Auto) (0-900) /uL Eos # (Auto) (0-450) /uL Baso # (Auto) (0-100) /uL PT (10.1-12.7) SECONDS INR (0.9-1.3) APTT (26.4-36.2) SECONDS Sodium (137-145) mmol/L Potassium (3.4-5.1) mmol/L Chloride (98-107) mmol/L Carbon Dioxide (22-32) mmol/L BUN (7-17) mg/dL Creatinine (0.52-1.04) mg/dL Estimated GFR (>60) mL/min BUN/Creatinine Ratio (6-22) Glucose (70-100) mg/dL Calcium (8.4-10.2) mg/dL Total Bilirubin (0.2-1.3) mg/dL AST (14-36) IU/L ALT (<35) IU/L Alkaline Phosphatase (38-126) U/L Total Creatine Kinase (30-135) U/L CK-MB (CK-2) CK-MB (CK-2) Rel Index Troponin I (0.01-0.034) ng/mL NT-Pro-B Natriuret Pep (<125) pg/mL Total Protein (6.3-8.2) g/dL Albumin (3.5-5.0) g/dL Globulin (1.7-4.1) g/dL Albumin/Globulin Ratio (1.0-2.8) Lipase (23-300) U/L Urine RBC 0-1/hpf (0-5/HPF) Urine WBC 10-30/hpf H (0-5/HPF) Ur Squamous Epith Cells 5-10 /hpf H (0-5/HPF) Amorphous Sediment 1+ Urine Bacteria Moderate (10-30) H (None) Urine Mucus 2+ H (Negative) Ur Culture Indicated? Specimen cultured COVID-19 PCR Negative (Negative) Point of Care Testing Test Results Positive Urine Dip Bedside Urine Glucose Negative Bedside Urine Bilirubin - Negative Bedside Urine Ketone - Negative Urine Specific [place] 1.030 Bedside Urine Occult Blood + Bedside Urine pH 6 Bedside Urine Protein +/- 15 Bedside Urine Urobilinogen - Negative Bedside Urine Nitrite - Negative Bedside Urine Leukocytes - Negative Esterase Imaging Data CT scan - chest: Radiologist's Impression: [address] [place] [id number] Scan Report Signed Patient: Radha Gordon [facility]#: [id number] : 1990Acct:[id number] Age/Sex: 29 / FDate of Service: 03/03/20 Loc: ED Accession Number: [id number] Procedure: CT angio chest PE protocol Ordering Provider: Laureen Hoover- PROCEDURE: CT ANGIO CHEST PE PROTOCOL INDICATIONS: chest pain, hx pe TECHNIQUE: After the administration of intravenous contrast, 2 mm thick sections acquired from the pulmonary apices to the posterior costophrenic angles. 3-dimensional maximum intensity projection (MIP) coronal and sagittal reformats were then acquired through the thorax. For radiation dose reduction, the following was used: automated exposure control, adjustment of mA and/or kV according to patient size. COMPARISON: [facility], CT, CT ANGIO CHEST PE PROTOCOL, 12/26/2019, 22:47. [facility], CT, CT ANGIO CHEST PE PROTOCOL, 12/12/2019, 22:18. FINDINGS: Image quality: Excellent. Pulmonary arteries: Pulmonary arteries are normal in size, and demonstrate no intraluminal filling defects to suggest central pulmonary embolism. Lungs and pleura: There is mild dependent atelectasis in the lung bases. No acute airspace opacity is seen. No pleural effusions or pneumothorax. Central and peripheral airways are patent. Mediastinum: Heart size is normal, without pericardial effusion. Small mediastinal lymph nodes are mildly increased in number, not significantly changed when compared to the CT from 12/26/2019.. 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 Esophagus is normal in caliber, without hiatal hernia. Bones and chest wall: No suspicious bony lesions. Ribs and thoracic spine appear intact throughout. Thyroid gland is unremarkable. Bilateral axillary lymph nodes are increased in number, but not significantly enlarged, similar to the prior exam from 12/26/2019. Abdomen: Status post cholecystectomy. Diminutive appearance of the spleen may be related to prior trauma. Visualized upper abdominal solid organs appear normal in the early arterial phase of enhancement. IMPRESSION: 1. No acute pulmonary embolus. 2. Increased number of small mediastinal, axillary, and periportal lymph nodes has not significantly changed when compared to the CT from 12/26/2019. Dictated by: Edwin Brooks M.D. on 03/03/2020 at 17:43 Approved by: Edwin Brooks M.D. on 03/03/2020 at 17:55 Chest x-ray: Radiologist's Impression: [address] [place] [id number] XRay Report Signed Patient: Radha Gordon [facility]#: [id number] : 1990Acct:[id number] Age/Sex: 29 / FDate of Service: 03/03/20 Loc: ED Accession Number: [id number] Procedure: XR chest 1V Ordering Provider: Laureen Hoover PROCEDURE: XR CHEST 1V INDICATIONS: chest pain TECHNIQUE: One view of the chest was acquired. COMPARISON: [facility], CT, CT ANGIO CHEST PE PROTOCOL, 12/26/2019, 22:47. [facility], CR, XR CHEST 2V, 12/12/2019, 18:08. FINDINGS: Surgical changes and devices: None. Lungs and pleura: Lungs are clear. No pleural effusions or pneumothorax. Mediastinum: Mediastinal contours appear normal. Heart size is normal. Bones and chest wall: No suspicious bony lesions. Overlying soft tissues appear unremarkable. IMPRESSION: No acute cardiopulmonary abnormality. Dictated by: Edwin Brooks M.D. on 03/03/2020 at 17:26 Approved by: Edwin Brooks M.D. on 03/03/2020 at 17:27 ECG Data Attestation: I personally reviewed and interpreted this ECG as follows: Interpretation: Sinus rhythm. Ventricular rate 63. P.r. interval 174. QRS 88. viewed by Dr Leahy. [facility] Narrative Medical decision making narrative: The patient is a 29-year-old female with history of pulmonary embolism and factor 5 [place] who presents with a chief complaint of right-sided chest pain. This is consistent with her previous pulmonary embolism pain. Thus CT was obtained which helps rule out any acute pulmonary embolism. She has a negative troponin, normal BNP. Given that her pain is reproducible palpation, is likely musculoskeletal at this point time. She states that this is entirely possible especially given that she carries her 1-year-old around a lot. Thus she was given a trial of cyclobenzaprine and oral pain medicine and felt much improved. She is requesting to go home. I did discuss the findings of lymphadenopathy on CT encouraged her to follow up with primary care provider. I discussed at length the importance of following up with primary care provider coming back to the emergency department for any acute concerns. She also test negative for coronavirus in the ER. She is hemodynamically stable and oxygenating well. She has no more questions or concerns and states understanding of return precautions of any acute concerns as well as follow-up with primary care provider. Patient has no questions or concerns upon discharge and states understanding of return precautions as well as follow-up care. <Maya Leahy, DO - Last Filed: 03/04/20 08:08> Lab Data Labs: Lab Results 03/03/20 03/03/20 03/03/20 Range/Units 16:25 16:25 16:25 WBC 11.5 H (4.5-11.0) X10^3/uL RBC 5.22 H (4.0-5.2) X10^6/uL Hgb 15.2 (12.0-16.0) g/dL Hct 45.8 (36-46) % MCV 87.7 (80-100) fL MCH 29.0 (26-34) PG MCHC 33.1 (30-36) % RDW 16.9 H (11.6-14.8) % Plt Count 427 H (150-400) X10^3/uL Neut % (Auto) 58.2 (50-75) % Lymph % (Auto) 29.8 (25-40) % Bates % (Auto) 7.3 (3-14) % Eos % (Auto) 3.6 (2-4) % Baso % (Auto) 1.1 (0-2) % Neut # (Auto) 6700 (1362-5556) /uL Lymph # (Auto) 3400 (2395-2284) /uL Bates # (Auto) 800 (0-900) /uL Eos # (Auto) 400 (0-450) /uL Baso # (Auto) 100 (0-100) /uL PT 16.2 H (10.1-12.7) SECONDS INR 1.4 H (0.9-1.3) APTT 43 H (26.4-36.2) SECONDS Sodium 141 (137-145) mmol/L Potassium 3.7 (3.4-5.1) mmol/L Chloride 108 H (98-107) mmol/L Carbon Dioxide 28 (22-32) mmol/L BUN 11 (7-17) mg/dL Creatinine 0.87 (0.52-1.04) mg/dL Estimated GFR > 60.0 (>60) mL/min BUN/Creatinine Ratio 12.6 (6-22) Glucose 96 (70-100) mg/dL Calcium 9.3 (8.4-10.2) mg/dL Total Bilirubin 0.6 (0.2-1.3) mg/dL AST 32 (14-36) IU/L ALT 21 (<35) IU/L Alkaline Phosphatase 99 (38-126) U/L Total Creatine Kinase 46 (30-135) U/L CK-MB (CK-2) TNP CK-MB (CK-2) Rel Index TNP Troponin I < 0.012 (0.01-0.034) ng/mL NT-Pro-B Natriuret Pep 160 H (<125) pg/mL Total Protein 8.3 H (6.3-8.2) g/dL Albumin 4.5 (3.5-5.0) g/dL Globulin 3.8 (1.7-4.1) g/dL Albumin/Globulin Ratio 1.2 (1.0-2.8) Lipase 106 (23-300) U/L Urine RBC (0-5/HPF) Urine WBC (0-5/HPF) Ur Squamous Epith Cells (0-5/HPF) Amorphous Sediment Urine Bacteria (None) Urine Mucus (Negative) Ur Culture Indicated? COVID-19 PCR (Negative) 03/03/20 03/03/20 Range/Units 16:45 18:13 WBC (4.5-11.0) X10^3/uL RBC (4.0-5.2) X10^6/uL Hgb (12.0-16.0) g/dL Hct (36-46) % MCV (80-100) fL MCH (26-34) PG MCHC (30-36) % RDW (11.6-14.8) % Plt Count (150-400) X10^3/uL Neut % (Auto) (50-75) % Lymph % (Auto) (25-40) % Bates % (Auto) (3-14) % Eos % (Auto) (2-4) % Baso % (Auto) (0-2) % Neut # (Auto) (5264-8139) /uL Lymph # (Auto) (1213-5163) /uL Bates # (Auto) (0-900) /uL Eos # (Auto) (0-450) /uL Baso # (Auto) (0-100) /uL PT (10.1-12.7) SECONDS INR (0.9-1.3) APTT (26.4-36.2) SECONDS Sodium (137-145) mmol/L Potassium (3.4-5.1) mmol/L Chloride (98-107) mmol/L Carbon Dioxide (22-32) mmol/L BUN (7-17) mg/dL Creatinine (0.52-1.04) mg/dL Estimated GFR (>60) mL/min BUN/Creatinine Ratio (6-22) Glucose (70-100) mg/dL Calcium (8.4-10.2) mg/dL Total Bilirubin (0.2-1.3) mg/dL AST (14-36) IU/L ALT (<35) IU/L Alkaline Phosphatase (38-126) U/L Total Creatine Kinase (30-135) U/L CK-MB (CK-2) CK-MB (CK-2) Rel Index Troponin I (0.01-0.034) ng/mL NT-Pro-B Natriuret Pep (<125) pg/mL Total Protein (6.3-8.2) g/dL Albumin (3.5-5.0) g/dL Globulin (1.7-4.1) g/dL Albumin/Globulin Ratio (1.0-2.8) Lipase (23-300) U/L Urine RBC 0-1/hpf (0-5/HPF) Urine WBC 10-30/hpf H (0-5/HPF) Ur Squamous Epith Cells 5-10 /hpf H (0-5/HPF) Amorphous Sediment 1+ Urine Bacteria Moderate (10-30) H (None) Urine Mucus 2+ H (Negative) Ur Culture Indicated? Specimen cultured COVID-19 PCR Negative (Negative) Point of Care Testing Test Results Positive Urine Dip Bedside Urine Glucose Negative Bedside Urine Bilirubin - Negative Bedside Urine Ketone - Negative Urine Specific [place] 1.030 Bedside Urine Occult Blood + Bedside Urine pH 6 Bedside Urine Protein +/- 15 Bedside Urine Urobilinogen - Negative Bedside Urine Nitrite - Negative Bedside Urine Leukocytes - Negative Esterase Discharge Plan Departure Patient Disposition: Home Clinical Impression: Chest pain, atypical, Musculoskeletal chest pain, Factor V deficiency Discharge Date/Time: 03/03/20 20:04 Instructions: DI for Atypical Chest Pain, DI for Chest Pain, DI for Musculoskeletal Pain Activity Restrictions/Additional Instructions: Thank you for trusting us with your care today. As discussed, we did a CT to check for any pulmonary embolisms, and this came back negative. Please continue taking your Xarelto as previously prescribed. Your lab work also came back well. As discussed, given that it hurts to press on the muscles of your chest, it is possible that you are having some musculoskeletal pain especially given that your Caring around your baby and lifting the baby up and down. We have given you take-home packs of a few different medications. I also sent in a pre scription of a muscle relaxer to [facility] in [place]. Please use this along with Tylenol as needed and able. Be careful using the take-home pack of pain medicine with Tylenol as the pain medicine already has Tylenol in it. I have given you a prepack prescription of a narcotic for pain. Be aware that this can be constipating and sedating. I encouraged taking with a stool softener, pushing fluids and fiber. Do not take and drive, operate heavy machinery, etc. Do not combine it with any other sedating substances such as alcohol. The combination of narcotics and alcohol and/or other sedatives can be lethal. Please follow-up with primary care provider in the next few days. Please come back to the emergency department for any acute concerns. Prescriptions: New cyclobenzaprine 10 mg tablet 10 mg PO TID PRN (Reason: muscle spasm) Qty: 14 RF: 0 No Action levothyroxine 25 mcg Tablet 25 mcg PO DAILY RF: 0 propranolol 20 mg Tablet 20 mg PO DAILY RF: 0 meloxicam 15 mg Tablet 15 mg PO DAILY RF: 0 sertraline 100 mg tablet 100 mg PO DAILY RF: 0 rizatriptan 10 mg tablet 10 mg PO DAILY PRN (Reason: Migraine Headache) RF: 0 (DME) nebulizer and compressor Device See Rx Instructions .ROUTE .MEDSUPPLY Qty: 1 RF: 0 Xarelto 20 mg tablet 20 mg PO DAILY Qty: 30 RF: 0 Referrals: Vicky Becker PA-C [Primary Care Provider] - <Maya Leahy DO - Last Filed: 03/04/20 08:08> Cosign ED Attending Jeffreyature Attestation: I was immediately available in the department for consultation. Documentation has been reviewed. I agree with assessment and plan.
[2020-03-03 18:42] LABS: COVID19 -Nasal RAPID Negative (Negative)
[2020-03-03] MEDS: CYCLOBENZAPRINE 10 MG TABLET PO (19:09)
[2020-03-03] MEDS: OXYCODONE/ACETAMINOPHEN 5/325 TABLET 1 TAB PO (19:09)
[2020-03-03] MEDS: PANTOPRAZOLE 40 MG VIAL IV (19:09)
[2020-03-03] MEDS: CYCLOBENZAPRINE 10 MG PREPACK 1 BOTTLE MISC (20:00)
[2020-03-03] MEDS: OXYCODONE/APAP 5/325 PREPACK 1 BOTTLE MISC (20:00)
== END 2020-03-03 20:04 | disposition home or self-care (01) ==
PROVIDERS: Emergency Provider Nurse Practitioner Family; PCP Physician Assistant
DX: R07.89 Other chest pain (principal); D68.2 Hereditary deficiency of other clotting factors; I26.99 Other pulmonary embolism without acute cor pulmonale
CPT/HCPCS: 36415; 71045; 71275; 80053; 81003; 81015; 81025; 82550; 83690; 83880; 84484; 85025; 85610; 85730; 87086; 87635; 93005; 96361; 96374; 96375; 96376; 99284; C9113; J2270; J2405; Q9967

== ENCOUNTER 2020-05-10 16:51 | Emergency (ER) | payer OTHER, SELFPAY ==
[2019-12-13 03:15] VITALS: BMI 40.3
[2020-05-10 17:00] VITALS: BP 136/95; PULSE 59; RESP 20; TEMP 36.1; O2SAT 99; BMI 42.4
[2020-05-10 17:31] LABS: Add Manual Diff / Slide Review NO; Basophils Absolute Auto 100 /uL (0-100); Eosinophils Absolute Auto 800 /uL (0-450); Eosinophils Percent Auto 7.2 % (2-4); Hematocrit 45.4 % (36-46); Hemoglobin 14.9 g/dL (12.0-16.0); Lymphocytes Absolute Auto 3300 /uL (1100-4500); Lymphocytes Percent Auto 29.8 % (25-40); Mean Corpuscular HGB Conc 32.8 % (30-36); Mean Corpuscular Hemoglobin 29.2 PG (26-34); Mean Corpuscular Volume 89.1 fL (80-100); Monocytes Absolute Auto 1000 /uL (0-900); Monocytes Percent Auto 9.3 % (3-14); Neutrophils Absolute Auto 5800 /uL (1500-7000); Neutrophils Percent Auto 52.7 % (50-75); Platelet Count 422 X10^3/uL (150-400); Red Cell Distribution Width 15.8 % (11.6-14.8); White Blood Cell Count 10.9 X10^3/uL (4.5-11.0)
[2020-05-10 17:32] VITALS: PULSE 57; RESP 19; O2SAT 97
[2020-05-10 17:39] LABS: Alanine Aminotransferase 20 IU/L (<35); Albumin 4.3 g/dL (3.5-5.0); Albumin Globulin Ratio 1.2 (1.0-2.8); Alkaline Phosphatase 92 U/L (38-126); Aspartate Aminotransferase 25 IU/L (14-36); BUN Creatinine Ratio 18.4 (6-22); Bilirubin Total 0.4 mg/dL (0.2-1.3); Blood Urea Nitrogen 16 mg/dL (7-17); Calcium 9.2 mg/dL (8.4-10.2); Carbon Dioxide 27 mmol/L (22-32); Chloride 109 mmol/L (98-107); Creatine Kinase 49 U/L (30-135); Estimated Glomerular Filt Rate > 60.0 mL/min (>60); Globulin 3.5 g/dL (1.7-4.1); Glucose 100 mg/dL (70-100); HEMOLYSIS < 15 (0-50); Potassium 4.1 mmol/L (3.4-5.1); Sodium 140 mmol/L (137-145); Total Protein 7.8 g/dL (6.3-8.2)
[2020-05-10 17:40] LABS: Pregnancy Test Serum,Qual Negative (Negative)
[2020-05-10 17:47] LABS: INR 1.5 (0.9-1.3); Prothrombin Time 16.9 SECONDS (10.1-12.7)
[2020-05-10 17:50] LABS: PTT Partial Thromboplastin Tim 42 SECONDS (26.4-36.2)
[2020-05-10] MEDS: SODIUM CHLORIDE 0.9% 1,000 ML 1000 ML IV (17:50)
[2020-05-10 17:53] LABS: D Dimer < 200 ng/mL (<230); NT-proBNP (BNP-Adult 18+) 196 pg/mL (<125); Troponin I < 0.012 ng/mL (0.01-0.034)
[2020-05-10 18:00] VITALS: BP 111/71; PULSE 55; RESP 20; O2SAT 95
[2020-05-10 18:30] VITALS: BP 116/75; PULSE 63; RESP 23; O2SAT 96
--- NOTE | 2020-05-10 18:37 | DI.RAD.S_ITS ---
PROCEDURE: XR CHEST 1V INDICATIONS: chest pains TECHNIQUE: One view of the chest was acquired. COMPARISON: [facility], CR, XR CHEST 1V, 03/03/2020, 16:50. FINDINGS: Surgical changes and devices: None. Lungs and pleura: Lungs are clear. No pleural effusions or pneumothorax. Mediastinum: Mediastinal contours appear normal. Heart size is normal. Bones and chest wall: No suspicious bony lesions. Overlying soft tissues appear unremarkable. IMPRESSION: No acute cardiopulmonary abnormality. Dictated by: Edwin Brooks M.D. on 05/10/2020 at 19:00 Approved by: Edwin Brooks M.D. on 05/10/2020 at 19:01
--- NOTE | 2020-05-10 18:45 | ED_ITS ---
HPI - General Adult General Chief complaint: Back Pain/Injury Stated complaint: chest pain , Hx of PE's Time Seen by Provider: 05/10/20 17:23 Source: patient Mode of arrival: Ambulatory Limitations: no limitations History of Present Illness HPI narrative: Patient complains of reproducible left trapezius/neck pain worse with breathing movement as of this and motion with left shoulder and arm. Patient concerned for possible another blood clot in the lungs. History of PE. Is on Xarelto. Last known blood clot December 2019. Last CT scan chest February 2020 and negative for any pulmonary embolisms. Denies any leg pain. No known injuries. He denies denies denies any chest pain. Again no dyspnea. Has history of neck injury in the past. Hurts to move her neck that radiates to left trapezius. Of painful on palpation of the left trapezius. Of again no chest pain. Onset 2 days ago. Patient states not allergic to morphine or [place] or Percocet. Patient has appointment with family doctor tomorrow already. Related Data Home Medications Medication Instructions Recorded Confirmed levothyroxine 25 mcg PO DAILY 12/13/19 12/13/19 meloxicam 15 mg PO DAILY 12/13/19 12/13/19 propranolol 20 mg PO DAILY 12/13/19 12/13/19 rizatriptan 10 mg PO DAILY PRN 12/13/19 12/13/19 sertraline 100 mg PO DAILY 12/13/19 12/13/19 Previous Rx's Medication Instructions Recorded nebulizer and compressor #1 each 12/13/19 rivaroxaban [Xarelto] 20 mg PO DAILY #30 tab 12/26/19 cyclobenzaprine 10 mg PO TID PRN #14 tab 03/03/20 hydrocodone-acetaminophen 1 tab PO Q6H PRN #7 tab 05/10/20 ondansetron 4 mg PO Q8H PRN #10 tab 05/10/20 Allergies Allergy/AdvReac Type Severity Reaction Status Date / Time amoxicillin [From AUGMENTIN] Allergy Unknown RASH Verified 03/03/20 16:13 cefaclor [From CECLOR] Allergy Unknown JOINTS Verified 03/03/20 16:13 SWELL clavulanic acid Allergy Unknown RASH Verified 03/03/20 16:13 [From AUGMENTIN] ketorolac [From TORADOL] Allergy Unknown MIGRAINE Verified 03/03/20 16:13 metoclopramide [From REGLAN] Allergy Unknown JOINTS Verified 03/03/20 16:13 MOVE tramadol [TRAMADOL] Allergy Unknown MIGRAINE Verified 03/03/20 16:13 Sulfa (Sulfonamide AdvReac Unknown PROJECTILE Verified 03/03/20 16:13 Antibiotics) VOMITING [SULFA (SULFONAMIDE ANTIBIOTICS)] duloxetine [From Cymbalta] AdvReac Anxiety Verified 03/03/20 16:13 gabapentin AdvReac Swelling Verified 03/03/20 16:13 of the Eye pregabalin [From Lyrica] AdvReac Verified 03/03/20 16:13 Review of Systems Review of Systems Narrative: GENERAL: Denies chills, fatigue, malaise, fever, sweats. HEENT: Denies sinus pain, ear pain, sore throat, difficulty swallowing RESPIRATORY: Denies dyspnea, cough CARDIOVASCULAR: Denies chest pain, palpitations, edema, GASTROINTESTINAL: Denies nausea, vomiting, abdominal pain, diarrhea, cons tipation, melena. : Denies dysuria, frequency, hematuria MUSCULOSKELETAL: Complains muscle or bony pain SKIN: Denies rash, skin lesions NEUROLOGIC: Denies weakness, headache, numbness, change in speech, confusion PSYCHIATRIC: No SI or HI or hallucinations ROS Unobtainable: All systems reviewed & are unremarkable except as noted in HPI and below Patient History Medical History (Updated 05/10/20 @ 18:51 by Stevie Wilkerson MD) Asthma exacerbation, mild Community acquired pneumonia Factor V deficiency Hx gestational diabetes Morbid obesity Pulmonary embolism Surgical History History of tonsillectomy and adenoidectomy Hx of appendectomy Hx of cholecystectomy Family History Mother Hypertension Obesity Asthma Father Hypertension Diabetes mellitus Social History household members: spouse and children Smoking Status: Never smoker alcohol intake: never Smoking Status: Never smoker alcohol intake frequency: 0-2 drinks per day Substance Use Type: marijuana Exam Narrative Exam Narrative: GENERAL: patient appears stated age. Well-nourished, well- developed patient, in no distress, not toxic not dyspneic HEAD: Normocephalic. EYES: Pupils equal round and reactive. No scleral icterus. No injection no dis charge ENT: Mucous membranes moist. No drooling no tongue elevation no trismus no malocclusion NECK: Trachea midline. Reproducible left trapezius tenderness on palpation as well as palpable spasm of this muscle. Pain with rotation of the neck radiating to left trapezius. Pain with deep breath as well. Pain with go talk movement of left shoulder and raising left hand above her head. CARDIOVASCULAR: Regular rate and rhythm without murmurs, gallops, or rubs. RESPIRATORY: Clear to auscultation. Breath sounds equal bilaterally. No wheezes, rales, or rhonchi. GASTROINTESTINAL: Abdomen soft, non-tender, nondistended. EXTREMITIES: No gross deformities. Calf nontender bilaterally BACK: Nontender without deformity or crepitance. No flank tenderness. NEURO: AOx4. SKIN: Warm and dry PSYCH: Not anxious, is cooperative Initial Vital Signs Initial Vital Signs: Vital Signs Temperature 96.9 F L 05/10/20 17:00 Pulse Rate 59 L 05/10/20 17:00 Respiratory Rate 20 05/10/20 17:00 Blood Pressure 136/95 H 05/10/20 17:00 Pulse Oximetry 99 05/10/20 17:00 Course Orders Ordered: Discontinued Medications Hydrocodone Bitart/Acetaminophen (Hydrocodone/Acet 5/325 Prepack) 1 bottle MISC SEEINSTR ONE Stop: 05/10/20 18:52 Last Admin: 05/10/20 19:02 Dose: 1 bottle Documented by: MINESH Sodium Chloride (Normal Saline 0.9%) 1,000 mls @ 1,000 mls/hr IV BOLUS ONE Stop: 05/10/20 18:22 Last Infusion: 05/10/20 19:08 Dose: 0 mls/hr Documented by: Admin: 05/10/20 17:50 Dose: 1,000 mls/hr Documented by: MINESH Morphine Sulfate (Morphine 4 Mg/Ml Inj) 4 mg IV NOW ONE Stop: 05/10/20 18:45 Last Admin: 05/10/20 18:55 Dose: 4 mg Documented by: CHAMP Ondansetron HCl (Ondansetron 4 Mg/2 Ml Inj) 4 mg IV NOW ONE Stop: 05/10/20 18:45 Last Admin: 05/10/20 18:55 Dose: 4 mg Documented by: REMAIKE Ondansetron HCl (Ondansetron 4 Mg Odt Prepack) 1 bottle MISC SEEINSTR ONE Stop: 05/10/20 18:52 Last Admin: 05/10/20 19:02 Dose: 1 bottle Documented by: MINESH Vital Signs Vital signs: Vital Signs - 8 hr 05/10/20 17:00 05/10/20 17:32 05/10/20 18:00 Temperature 96.9 F L Pulse Rate 59 L 57 L 55 L Respiratory Rate 20 19 20 Blood Pressure 136/95 H 111/71 Pulse Oximetry 99 97 95 05/10/20 18:30 05/10/20 19:00 Temperature Pulse Rate 63 62 Respiratory Rate 23 12 Blood Pressure 116/75 102/69 Pulse Oximetry 96 95 Medical Decision Making Medical Records Medical records reviewed: Yes I reviewed the patient's medical records. Medical records narrative: [address] [id number] Scan ReportSigned Patient: Radha Gordon [facility]#: [id number]: 1990Acct:[id number]/Sex: 29 / FDate of Service: 03/03/20Loc: EDAccession Number: [id number] Procedure: CT angio chest PE protocol Ordering Provider: Laureen Hoover PROCEDURE: CT ANGIO CHEST PE PROTOCOL INDICATIONS: chest pain, hx pe TECHNIQUE: After the administration of intravenous contrast, 2 mm thick sections acquired from the pulmonary apices to the posterior costophrenic angles. 3-dimensional maximum intensity projection (MIP) coronal and sagittal reformats were then acquired through the thorax. For radiation dose reduction, the following was used: automated exposure control, adjustment of mA and/or kV according to patient size. COMPARISON: [facility], CT, CT ANGIO CHEST PE PROTOCOL, 12/26/2019, 22:47. [facility], CT, CT ANGIO CHEST PE PROTOCOL, 12/12/2019, 22:18. FINDINGS: Image quality: Excellent. Pulmonary arteries: Pulmonary arteries are normal in size, and demonstrate no intraluminal filling defects to suggest central pulmonary embolism. Lungs and pleura: There is mild dependent atelectasis in the lung bases. No acute airspace opacity is seen. No pleural effusions or pneumothorax. Central and peripheral airways are patent. Mediastinum: Heart size is normal, without pericardial effusion. Small mediastinal lymph nodes are mildly increased in number, not significantly changed when compared to the CT from 12/26/2019.. 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 Esophagus is normal in caliber, without hiatal hernia. Bones and chest wall: No suspicious bony lesions. Ribs and thoracic spine a ppear intact throughout. Thyroid gland is unremarkable. Bilateral axillary lymph nodes are increased in number, but not significantly enlarged, similar to the prior exam from 12/26/2019. Abdomen: Status post cholecystectomy. Diminutive appearance of the spleen may be related to prior trauma. Visualized upper abdominal solid organs appear normal in the early arterial phase of enhancement. IMPRESSION: 1. No acute pulmonary embolus. 2. Increased number of small mediastinal, axillary, and periportal lymph nodes has not significantly changed when compared to the CT from 12/26/2019. Dictated by: Edwin Brooks M.D. on 03/03/2020 at 17:43 Approved by: Edwin Brooks M.D. on 03/03/2020 at 17:55 Lab Data Lab results reviewed: Yes I reviewed the patient's lab results. Result diagrams: 05/10/20 17:17 05/10/20 17:17 Labs: Lab Results 05/10/20 05/10/20 05/10/20 Range/Units 17:17 17:17 17:17 WBC 10.9 (4.5-11.0) X10^3/uL RBC 5.10 (4.0-5.2) X10^6/uL Hgb 14.9 (12.0-16.0) g/dL Hct 45.4 (36-46) % MCV 89.1 (80-100) fL MCH 29.2 (26-34) PG MCHC 32.8 (30-36) % RDW 15.8 H (11.6-14.8) % Plt Count 422 H (150-400) X10^3/uL Neut % (Auto) 52.7 (50-75) % Lymph % (Auto) 29.8 (25-40) % [place] % (Auto) 9.3 (3-14) % Eos % (Auto) 7.2 H (2-4) % Baso % (Auto) 1.0 (0-2) % Neut # (Auto) 5800 (1436-8570) /uL Lymph # (Auto) 3300 (9689-0753) /uL [place] # (Auto) 1000 H (0-900) /uL Eos # (Auto) 800 H (0-450) /uL Baso # (Auto) 100 (0-100) /uL PT 16.9 H (10.1-12.7) SECONDS INR 1.5 H (0.9-1.3) APTT 42 H (26.4-36.2) SECONDS D-Dimer < 200 (<230) ng/mL Sodium 140 (137-145) mmol/L Potassium 4.1 (3.4-5.1) mmol/L Chloride 109 H (98-107) mmol/L Carbon Dioxide 27 (22-32) mmol/L BUN 16 (7-17) mg/dL Creatinine 0.87 (0.52-1.04) mg/dL Estimated GFR > 60.0 (>60) mL/min BUN/Creatinine Ratio 18.4 (6-22) Glucose 100 (70-100) mg/dL Calcium 9.2 (8.4-10.2) mg/dL Total Bilirubin 0.4 (0.2-1.3) mg/dL AST 25 (14-36) IU/L ALT 20 (<35) IU/L Alkaline Phosphatase 92 (38-126) U/L Total Creatine Kinase 49 (30-135) U/L CK-MB (CK-2) TNP CK-MB (CK-2) Rel Index TNP Troponin I < 0.012 (0.01-0.034) ng/mL NT-Pro-B Natriuret Pep 196 H (<125) pg/mL Total Protein 7.8 (6.3-8.2) g/dL Albumin 4.3 (3.5-5.0) g/dL Globulin 3.5 (1.7-4.1) g/dL Albumin/Globulin Ratio 1.2 (1.0-2.8) Serum , Qual (Negative) 05/10/20 Range/Units 17:17 WBC (4.5-11.0) X10^3/uL RBC (4.0-5.2) X10^6/uL Hgb (12.0-16.0) g/dL Hct (36-46) % MCV (80-100) fL MCH (26-34) PG MCHC (30-36) % RDW (11.6-14.8) % Plt Count (150-400) X10^3/uL Neut % (Auto) (50-75) % Lymph % (Auto) (25-40) % [place] % (Auto) (3-14) % Eos % (Auto) (2-4) % Baso % (Auto) (0-2) % Neut # (Auto) (9301-3270) /uL Lymph # (Auto) (2418-5975) /uL [place] # (Auto) (0-900) /uL Eos # (Auto) (0-450) /uL Baso # (Auto) (0-100) /uL PT (10.1-12.7) SECONDS INR (0.9-1.3) APTT (26.4-36.2) SECONDS D-Dimer (<230) ng/mL Sodium (137-145) mmol/L Potassium (3.4-5.1) mmol/L Chloride (98-107) mmol/L Carbon Dioxide (22-32) mmol/L BUN (7-17) mg/dL Creatinine (0.52-1.04) mg/dL Estimated GFR (>60) mL/min BUN/Creatinine Ratio (6-22) Glucose (70-100) mg/dL Calcium (8.4-10.2) mg/dL Total Bilirubin (0.2-1.3) mg/dL AST (14-36) IU/L ALT (<35) IU/L Alkaline Phosphatase (38-126) U/L Total Creatine Kinase (30-135) U/L CK-MB (CK-2) CK-MB (CK-2) Rel Index Troponin I (0.01-0.034) ng/mL NT-Pro-B Natriuret Pep (<125) pg/mL Total Protein (6.3-8.2) g/dL Albumin (3.5-5.0) g/dL Globulin (1.7-4.1) g/dL Albumin/Globulin Ratio (1.0-2.8) Serum , Qual Negative (Negative) Point of Care Testing Test Results Negative Urine Dip Bedside Urine Glucose Negative Bedside Urine Bilirubin - Negative Bedside Urine Ketone - Negative Urine Specific [place] 1.030 Bedside Urine Occult Blood + Bedside Urine pH 6.0 Bedside Urine Protein - Negative Bedside Urine Urobilinogen - Negative Bedside Urine Nitrite - Negative Bedside Urine Leukocytes - Negative Esterase Point of care testing: Point of Care Testing Test Results Negative Urine Dip Bedside Urine Glucose Negative Bedside Urine Bilirubin - Negative Bedside Urine Ketone - Negative Urine Specific [place] 1.030 Bedside Urine Occult Blood + Bedside Urine pH 6.0 Bedside Urine Protein - Negative Bedside Urine Urobilinogen - Negative Bedside Urine Nitrite - Negative Bedside Urine Leukocytes - Negative Esterase Imaging Data Chest x-ray: Radiologist's Impression: [address] [id number] ReportSigned Patient: Radha Gordon [facility]#: [id number]: 1990Acct:[id number]/Sex: 29 / FDate of Service: 05/10/20Loc: EDAccession Number: [id number] Procedure: XR chest 1V Ordering Provider: Stevie Wilkerson MD PROCEDURE: XR CHEST 1V INDICATIONS: chest pains TECHNIQUE: One view of the chest was acquired. COMPARISON: [facility], , XR CHEST 1V, 03/03/2020, 16:50. FINDINGS: Surgical changes and devices: None. Lungs and pleura: Lungs are clear. No pleural effusions or pneumothorax. Mediastinum: Mediastinal contours appear normal. Heart size is normal. Bones and chest wall: No suspicious bony lesions. Overlying soft tissues appear unremarkable. IMPRESSION: No acute cardiopulmonary abnormality. Dictated by: Edwin Brooks M.D. on 05/10/2020 at 19:00 Approved by: Edwin Brooks M.D. on 05/10/2020 at 19:01 ECG Data Attestation: I personally reviewed and interpreted this ECG as follows: Interpretation: Sinus bradycardia, rate 59, no ST elevation or depression. Otherwise normal EKG. MDM Narrative Medical decision making narrative: Appropriate for discharge home. D-dimer is negative. No hypoxia no tachycardia. Patient is on beta-colleen however no tachypnea and no hypoxia. This is reproducible left trapezius pain there is no no no chest pain. On light touch there is tenderness to left trapezius. There is spasm to this muscle. No known injury. Has had neck injury in the past. No repeat troponin or EKG. There is no no no chest pain. Discharge Plan Departure Patient Disposition: Home Clinical Impression: Trapezius muscle spasm Thoracic back pain Qualifiers: Chronicity: acute Back pain laterality: left Qualified Code(s): M54.6 - Pain in thoracic spine Instructions: DI for Back Spasm Activity Restrictions/Additional Instructions: No driving or operating machinery tonight. See family doctor tomorrow as scheduled. Return if worse if any questions or concerns. May continue home medications Prescriptions: New hydrocodone-acetaminophen 5-325 mg tablet 1 tab PO Q6H PRN (Reason: pain) Qty: 7 RF: 0 ondansetron 4 mg tablet,disintegrating 4 mg PO Q8H PRN (Reason: nausea and vomiting) Qty: 10 RF: 0 No Action levothyroxine 25 mcg Tablet 25 mcg PO DAILY RF: 0 propranolol 20 mg Tablet 20 mg PO DAILY RF: 0 meloxicam 15 mg Tablet 15 mg PO DAILY RF: 0 sertraline 100 mg tablet 100 mg PO DAILY RF: 0 rizatriptan 10 mg tablet 10 mg PO DAILY PRN (Reason: Migraine Headache) RF: 0 (DME) nebulizer and compressor Device See Rx Instructions .ROUTE .MEDSUPPLY Qty: 1 RF: 0 Xarelto 20 mg tablet 20 mg PO DAILY Qty: 30 RF: 0 cyclobenzaprine 10 mg tablet 10 mg PO TID PRN (Reason: muscle spasm) Qty: 14 RF: 0 Referrals: Vicky Becker PA-C [Primary Care Provider] -
[2020-05-10] MEDS: MORPHINE 4 MG/ML INJ IV (18:55)
[2020-05-10] MEDS: ONDANSETRON 4 MG/2 ML INJ IV (18:55)
[2020-05-10 19:00] VITALS: BP 102/69; PULSE 62; RESP 12; O2SAT 95
[2020-05-10] MEDS: ONDANSETRON 4 MG ODT PREPACK 1 BOTTLE MISC (19:02)
[2020-05-10] MEDS: HYDROCODONE/ACET 5/325 PREPACK 1 BOTTLE MISC (19:02)
== END 2020-05-10 19:15 | disposition home or self-care (01) ==
PROVIDERS: Emergency Medicine; Emergency Provider Emergency Medicine; PCP Physician Assistant
DX: M62.838 Other muscle spasm (principal); M54.6 Pain in thoracic spine; M25.512 Pain in left shoulder; R07.9 Chest pain, unspecified; E66.9 Obesity, unspecified; Z68.41 Body mass index [BMI] 40.0-44.9, adult
CPT/HCPCS: 36415; 71045; 80053; 81003; 81025; 82550; 83880; 84484; 84703; 85025; 85379; 85610; 85730; 93005; 93010; 96361; 96374; 96375; 99283; 99284; J2270; J2405

== ENCOUNTER 2020-05-25 20:04 | Emergency (ER) | payer OTHER, SELFPAY ==
[2019-12-13 03:15] VITALS: BMI 40.3
[2020-05-25] VITALS (9 sets, daily range): BP systolic 109–128; BP diastolic 65–79; PULSE 62–77; RESP 10–22; TEMP 37.1–37.3; O2SAT 94–98; BMI 42.4
--- NOTE | 2020-05-25 20:16 | DI.RAD.S_ITS ---
PROCEDURE: XR CHEST 1V INDICATIONS: SOB, fever, history of PE TECHNIQUE: One view of the chest was acquired. COMPARISON: [facility], CR, XR CHEST 1V, 05/10/2020, 18:42. FINDINGS: Overlying EKG wires. Surgical changes and devices: None. Lungs and pleura: Lower tracheal airway is not well evaluated. Lungs are clear. No pleural effusions or pneumothorax. Mediastinum: Mediastinal contours appear normal. Heart size is normal. Bones and chest wall: No suspicious bony lesions. Overlying soft tissues appear unremarkable. IMPRESSION: No consolidation, CHF, pleural effusion, or pneumothorax. The lower trachea is not well appreciated which may be due to suboptimal demonstration versus distal tracheal stricture/compression. Agree with preliminary report. Dictated by: Emmanuel Sheridan D.O. on 05/26/2020 at 6:52 Approved by: Emmanuel Sheridan D.O. on 05/26/2020 at 6:59
--- NOTE | 2020-05-25 20:26 | ED_ITS ---
HPI - SOB/Dyspnea General Chief Complaint: Shortness of Breath/Dyspnea Stated Complaint: COLD SWEATS RIGHT SIDE RIB PAIN IN BACK NAUSE Time Seen by Provider: 05/25/20 20:06 Source: patient Mode of arrival: Ambulatory Limitations: no limitations History of Present Illness HPI Narrative: 29-year-old female nonsmoker with history of hypothyroid, clotting disorders and PE, on anticoagulation presents with a chief complaint of a few days of worsening shortness of breath, sharp right posterior upper back pain which is worse with deep breath, the occasional dry and hacking cough as well as low-grade fever and some chills. She denies any headache, blurred vision, runny nose or sore throat. She denies any nausea, vomiting or diarrhea. She denies any dysuria, frequency or urgency. She states that she has not mis sed any doses of her anticoagulation and was most recently diagnosed with a pulmonary embolism in December. Her right posterior torso pain is worse with motion, deep breath, is sharp and stabbing, and 8/10. MD Complaint: shortness of breath, cough and pain with inspiration Onset (ago): day(s) Severity: moderate Consistency/Duration: intermittent Relieving factors: rest Exacerbating factors: movement and inspiration Known history of: PE Associated symptoms: pain with inspiration, fever and cough Treatment prior to arrival: none Related Data Home oxygen amount: none Home Medications Medication Instructions Recorded Confirmed levothyroxine 25 mcg PO DAILY 12/13/19 12/13/19 meloxicam 15 mg PO DAILY 12/13/19 12/13/19 propranolol 20 mg PO DAILY 12/13/19 12/13/19 rizatriptan 10 mg PO DAILY PRN 12/13/19 12/13/19 sertraline 100 mg PO DAILY 12/13/19 12/13/19 Previous Rx's Medication Instructions Recorded nebulizer and compressor #1 each 12/13/19 rivaroxaban [Xarelto] 20 mg PO DAILY #30 tab 12/26/19 cyclobenzaprine 10 mg PO TID PRN #14 tab 03/03/20 hydrocodone-acetaminophen 1 tab PO Q6H PRN #7 tab 05/10/20 ondansetron 4 mg PO Q8H PRN #10 tab 05/10/20 hydrocodone-acetaminophen 1 tab PO Q4-6H PRN #10 tab 05/26/20 ondansetron 4 mg PO TID-QID PRN #10 tab 05/26/20 Allergies Allergy/AdvReac Type Severity Reaction Status Date / Time amoxicillin [From AUGMENTIN] Allergy Unknown RASH Verified 03/03/20 16:13 cefaclor [From CECLOR] Allergy Unknown JOINTS Verified 03/03/20 16:13 SWELL clavulanic acid Allergy Unknown RASH Verified 03/03/20 16:13 [From AUGMENTIN] ketorolac [From TORADOL] Allergy Unknown MIGRAINE Verified 03/03/20 16:13 metoclopramide [From REGLAN] Allergy Unknown JOINTS Verified 03/03/20 16:13 MOVE tramadol [TRAMADOL] Allergy Unknown MIGRAINE Verified 03/03/20 16:13 Sulfa (Sulfonamide AdvReac Unknown PROJECTILE Verified 03/03/20 16:13 Antibiotics) VOMITING [SULFA (SULFONAMIDE ANTIBIOTICS)] duloxetine [From Cymbalta] AdvReac Anxiety Verified 03/03/20 16:13 gabapentin AdvReac Swelling Verified 03/03/20 16:13 of the Eye pregabalin [From Lyrica] AdvReac Verified 03/03/20 16:13 Review of Systems Constitutional Constitutional: Reports chills, Denies fatigue, Reports fever(s), Denies frequent falls, Denies lethargy and Denies weakness Eyes Eyes: Denies change in vision, Denies eye discharge, Denies irritation and Denies loss of vision ENT Ears, Nose, Mouth, and Throat: Denies change in voice, Denies dizziness, Denies neck pain, Denies sore throat and Denies throat swelling Cardiovascular Cardiovascular: Denies chest pain, Denies irregular heart rhythm, Denies lightheadedness, Denies palpitations, Reports dyspnea, Denies dyspnea on exertion and Denies orthopnea Respiratory Respiratory: Reports cough, Reports pain on inspiration, Reports pain with cough, Reports dyspnea, Denies dyspnea on exertion and Denies wheezing Gastrointestinal Gastrointestinal: Denies abdominal pain, Denies change in bowel habits, Denies diarrhea, Denies nausea and Denies vomiting Musculoskeletal Musculoskeletal: Denies neck pain and Denies numbness Integumentary/Breasts Skin/Breast: Denies pruritus, Denies erythema, Denies rash and Denies wounds Neurologic Neurologic: Denies behavioral changes, Denies confusion, Denies dizziness, Denies frequent falls, Denies loss of vision, Denies numbness and Denies weakness Psychiatric Psychiatric: Denies anxiety, Denies behavioral changes, Denies confusion, Denies depression, Denies homicidal ideation and Denies suicidal ideation Endocrine Endocrine: Denies fatigue, Denies flushing and Denies palpitations Hematologic/Lymphatic Hematologic/Lymphatic: Denies easy bruising Allergic/Immunologic Allergic/Immunologic: Denies urticaria, Denies throat swelling and Denies wheezing Patient History Medical History (Updated 05/26/20 @ 02:27 by Felipe Ortiz DO) Asthma exacerbation, mild Community acquired pneumonia Factor V deficiency Hx gestational diabetes Morbid obesity Pulmonary embolism Surgical History History of tonsillectomy and adenoidectomy Hx of appendectomy Hx of cholecystectomy Family History Mother Hypertension Obesity Asthma Father Hypertension Diabetes mellitus Social History household members: spouse and children Smoking Status: Never smoker alcohol intake: never Smoking Status: Never smoker alcohol intake frequency: 0-2 drinks per day Substance Use Type: marijuana Exam Narrative Exam Narrative: GENERAL: [29] year old patient appears stated age. Well- nourished, well-developed patient, in mild distress. HEAD: Atraumatic. Normocephalic. EYES: Pupils equal round and reactive. Extraocular motions intact. No scleral icterus. No injection or drainage. ENT: Nose without bleeding, purulent drainage. Throat without erythema, tonsillar hypertrophy or exudate. Airway patent. NECK: Trachea midline. Non tender CARDIOVASCULAR: Regular rate and rhythm without murmurs, gallops, or rubs. RESPIRATORY: Clear to auscultation. Breath sounds equal bilaterally. No wheezes, rales, or rhonchi. GASTROINTESTINAL: Abdomen soft, non-tender, nondistended. EXTREMITIES: No edema or joint tenderness. BACK: Nontender without deformity or crepitance. No flank tenderness. NEURO: AOx3. SKIN: No rash or erythema of visible areas Initial Vital Signs Initial Vital Signs: Vital Signs Temperature 99.2 F 05/25/20 20:10 Pulse Rate 75 05/25/20 20:10 Respiratory Rate 20 05/25/20 20:10 Blood Pressure 120/65 05/25/20 20:10 Pulse Oximetry 96 05/25/20 20:10 Course Orders Ordered: ED Orders 05/25/20 21:01 CT angio chest PE protocol Stat 05/25/20 21:37 Blood Culture Stat 05/25/20 22:55 COVID19 Stat 05/26/20 00:00 renal complete Stat Discontinued Medications Acetaminophen (Acetaminophen 325 Mg Tablet) 975 mg PO NOW ONE Stop: 05/25/20 22:10 Last Admin: 05/25/20 22:14 Dose: 975 mg Documented by: MACIEL Hydrocodone Bitart/Acetaminophen (Hydrocodone/Acet 5/325 Prepack) 1 bottle MISC SEEINSTR ONE Stop: 05/26/20 02:25 Last Admin: 05/26/20 02:28 Dose: 1 bottle Documented by: MACIEL Sodium Chloride (Normal Saline 0.9%) 1,000 mls @ 150 mls/hr IV CONT KELSEY Last Infusion: 05/26/20 02:28 Dose: 0 mls/hr Documented by: Admin: 05/25/20 20:31 Dose: 150 mls/hr Documented by: MACIEL Ondansetron HCl (Ondansetron 4 Mg Odt Prepack) 1 bottle MISC SEEINSTR ONE Stop: 05/26/20 02:25 Last Admin: 05/26/20 02:28 Dose: 1 bottle Documented by: MACIEL Vital Signs Vital signs: Vital Signs - 8 hr 05/25/20 21:59 05/25/20 22:01 05/25/20 22:15 Temperature 98.8 F Pulse Rate 62 63 Respiratory Rate 10 L 15 Blood Pressure 128/79 120/70 Pulse Oximetry 96 97 05/25/20 22:30 05/25/20 22:31 05/25/20 23:00 Temperature Pulse Rate 62 63 68 Respiratory Rate 22 20 Blood Pressure 109/70 113/73 Pulse Oximetry 94 96 97 05/25/20 23:30 05/26/20 00:00 05/26/20 00:01 Temperature Pulse Rate 66 62 61 Respiratory Rate Blood Pressure 117/66 96/61 Pulse Oximetry 98 97 96 05/26/20 00:30 05/26/20 00:31 05/26/20 01:00 Temperature Pulse Rate 65 67 62 Respiratory Rate 30 H Blood Pressure 120/72 Pulse Oximetry 96 96 96 05/26/20 01:01 05/26/20 01:30 05/26/20 01:31 Temperature Pulse Rate 66 74 76 Respiratory Rate 34 H 35 H 14 Blood Pressure 128/77 124/71 Pulse Oximetry 96 96 98 05/26/20 01:59 Temperature Pulse Rate 65 Respiratory Rate 21 Blood Pressure 127/81 Pulse Oximetry 98 MDM - SOB/Dyspnea Lab Data Result diagrams: 05/25/20 20:30 05/25/20 20:30 Labs: Lab Results 05/25/20 05/25/20 05/25/20 Range/Units 20:30 20:30 20:30 WBC 12.5 H (4.5-11.0) X10^3/uL RBC 4.88 (4.0-5.2) X10^6/uL Hgb 14.3 (12.0-16.0) g/dL Hct 43.7 (36-46) % MCV 89.4 (80-100) fL MCH 29.3 (26-34) PG MCHC 32.7 (30-36) % RDW 15.2 H (11.6-14.8) % Plt Count 406 H (150-400) X10^3/uL Neut % (Auto) 54.9 (50-75) % Lymph % (Auto) 28.3 (25-40) % [place] % (Auto) 9.8 (3-14) % Eos % (Auto) 6.2 H (2-4) % Baso % (Auto) 0.8 (0-2) % Neut # (Auto) 6800 (5953-3816) /uL Lymph # (Auto) 3500 (2790-6313) /uL [place] # (Auto) 1200 H (0-900) /uL Eos # (Auto) 800 H (0-450) /uL Baso # (Auto) 100 (0-100) /uL Sodium 142 (137-145) mmol/L Potassium 3.7 (3.4-5.1) mmol/L Chloride 109 H (98-107) mmol/L Carbon Dioxide 28 (22-32) mmol/L BUN 15 (7-17) mg/dL Creatinine 1.06 H (0.52-1.04) mg/dL Estimated GFR > 60.0 (>60) mL/min BUN/Creatinine Ratio 14.2 (6-22) Glucose 96 (70-100) mg/dL Lactate (0.7-2.1) mmol/L Calcium 9.1 (8.4-10.2) mg/dL Magnesium 1.9 (1.6-2.3) mg/dL Total Creatine Kinase 46 (30-135) U/L CK-MB (CK-2) TNP CK-MB (CK-2) Rel Index TNP Troponin I < 0.012 (0.01-0.034) ng/mL NT-Pro-B Natriuret Pep 106 (<125) pg/mL Procalcitonin < 0.05 (<0.5) ng/mL SARS-CoV-2 (PCR) (Negative) 05/25/20 05/25/20 Range/Units 20:30 22:55 WBC (4.5-11.0) X10^3/uL RBC (4.0-5.2) X10^6/uL Hgb (12.0-16.0) g/dL Hct (36-46) % MCV (80-100) fL MCH (26-34) PG MCHC (30-36) % RDW (11.6-14.8) % Plt Count (150-400) X10^3/uL Neut % (Auto) (50-75) % Lymph % (Auto) (25-40) % [place] % (Auto) (3-14) % Eos % (Auto) (2-4) % Baso % (Auto) (0-2) % Neut # (Auto) (7563-9539) /uL Lymph # (Auto) (5965-2392) /uL [place] # (Auto) (0-900) /uL Eos # (Auto) (0-450) /uL Baso # (Auto) (0-100) /uL Sodium (137-145) mmol/L Potassium (3.4-5.1) mmol/L Chloride (98-107) mmol/L Carbon Dioxide (22-32) mmol/L BUN (7-17) mg/dL Creatinine (0.52-1.04) mg/dL Estimated GFR (>60) mL/min BUN/Creatinine Ratio (6-22) Glucose (70-100) mg/dL Lactate 1.1 (0.7-2.1) mmol/L Calcium (8.4-10.2) mg/dL Magnesium (1.6-2.3) mg/dL Total Creatine Kinase (30-135) U/L CK-MB (CK-2) CK-MB (CK-2) Rel Index Troponin I (0.01-0.034) ng/mL NT-Pro-B Natriuret Pep (<125) pg/mL Procalcitonin (<0.5) ng/mL SARS-CoV-2 (PCR) Negative (Negative) Urine Dip Bedside Urine Glucose Negative Bedside Urine Bilirubin - Negative Bedside Urine Ketone - Negative Urine Specific [place] 1.10 Bedside Urine Occult Blood +/- Bedside Urine pH 5.5 Bedside Urine Protein +/- 15 Bedside Urine Urobilinogen - Negative Bedside Urine Nitrite - Negative Bedside Urine Leukocytes - Negative Esterase Imaging Data CT scan - chest: Radiologist's Impression: No PE or pneumonia Renal US: Radiologist's Impression: No evidence of stone or other obvious abnormality Discharge Plan Departure Patient Disposition: Home Clinical Impression: Acute dyspnea, Acute flank pain Instructions: DI for Shortness of Breath, DI for Flank Pain Activity Restrictions/Additional Instructions: *You have been diagnosed with [shortness of breath and right flank pain. Labs and imaging is very reassuring. There is no evidence of pulmonary embolism, pneumonia, COVID or kidney stone.] *What to do: *Take medications as directed: Prescriptions sent to [facility] at your request *Follow up with your primary care provider in 2-3 days, call for an appointment. Let them know you were seen in the Emergency Department and that we ask that you be seen in follow up *Return to ER if you should have any new, worsening or concerning symptoms, such as [increasing pain, more difficulty breathing, fever greater than 101 F or other bothersome symptoms] Prescriptions: New hydrocodone-acetaminophen 5-325 mg tablet 1 tab PO Q4-6H PRN (Reason: pain) Qty: 10 RF: 0 ondansetron 4 mg tablet,disintegrating 4 mg PO TID-QID PRN (Reason: nausea and vomiting) Qty: 10 RF: 0 No Action levothyroxine 25 mcg Tablet 25 mcg PO DAILY RF: 0 propranolol 20 mg Tablet 20 mg PO DAILY RF: 0 meloxicam 15 mg Tablet 15 mg PO DAILY RF: 0 sertraline 100 mg tablet 100 mg PO DAILY RF: 0 rizatriptan 10 mg tablet 10 mg PO DAILY PRN (Reason: Migraine Headache) RF: 0 (DME) nebulizer and compressor Device See Rx Instructions .ROUTE .MEDSUPPLY Qty: 1 RF: 0 Xarelto 20 mg tablet 20 mg PO DAILY Qty: 30 RF: 0 cyclobenzaprine 10 mg tablet 10 mg PO TID PRN (Reason: muscle spasm) Qty: 14 RF: 0 hydrocodone-acetaminophen 5-325 mg tablet 1 tab PO Q6H PRN (Reason: pain) Qty: 7 RF: 0 ondansetron 4 mg tablet,disintegrating 4 mg PO Q8H PRN (Reason: nausea and vomiting) Qty: 10 RF: 0 Referrals: Vicky Becker PA-C [Primary Care Provider] -
[2020-05-25] MEDS: SODIUM CHLORIDE 0.9% 1,000 ML 150 ML IV (20:31)
[2020-05-25 20:44] LABS: Add Manual Diff / Slide Review NO; Basophils Absolute Auto 100 /uL (0-100); Basophils Percent Auto 0.8 % (0-2); Eosinophils Absolute Auto 800 /uL (0-450); Eosinophils Percent Auto 6.2 % (2-4); Hematocrit 43.7 % (36-46); Hemoglobin 14.3 g/dL (12.0-16.0); Lymphocytes Absolute Auto 3500 /uL (1100-4500); Lymphocytes Percent Auto 28.3 % (25-40); Mean Corpuscular HGB Conc 32.7 % (30-36); Mean Corpuscular Hemoglobin 29.3 PG (26-34); Mean Corpuscular Volume 89.4 fL (80-100); Monocytes Absolute Auto 1200 /uL (0-900); Monocytes Percent Auto 9.8 % (3-14); Neutrophils Absolute Auto 6800 /uL (1500-7000); Neutrophils Percent Auto 54.9 % (50-75); Platelet Count 406 X10^3/uL (150-400); Red Blood Cell Count 4.88 X10^6/uL (4.0-5.2); Red Cell Distribution Width 15.2 % (11.6-14.8); White Blood Cell Count 12.5 X10^3/uL (4.5-11.0)
[2020-05-25 20:49] LABS: Lactate (Lactic Acid) 1.1 mmol/L (0.7-2.1)
[2020-05-25 20:50] LABS: BUN Creatinine Ratio 14.2 (6-22); Blood Urea Nitrogen 15 mg/dL (7-17); Calcium 9.1 mg/dL (8.4-10.2); Carbon Dioxide 28 mmol/L (22-32); Chloride 109 mmol/L (98-107); Creatine Kinase 46 U/L (30-135); Estimated Glomerular Filt Rate > 60.0 mL/min (>60); Glucose 96 mg/dL (70-100); HEMOLYSIS < 15 (0-50); Magnesium 1.9 mg/dL (1.6-2.3); Potassium 3.7 mmol/L (3.4-5.1); Sodium 142 mmol/L (137-145)
--- NOTE | 2020-05-25 21:01 | DI.CT.S_ITS ---
PROCEDURE: CT ANGIO CHEST PE PROTOCOL INDICATIONS: right thorax pain, short of breath, cough, low grade fever TECHNIQUE: After the administration of intravenous contrast, 2 mm thick sections acquired from the pulmonary apices to the posterior costophrenic angles. 3-dimensional maximum intensity projection (MIP) coronal and sagittal reformats were then acquired through the thorax. For radiation dose reduction, the following was used: automated exposure control, adjustment of mA and/or kV according to patient size. COMPARISON: [facility], CT, CT ANGIO CHEST PE PROTOCOL, 03/03/2020, 17:13. FINDINGS: Image quality: Excellent. Pulmonary arteries: Pulmonary arteries are normal in size, and demonstrate no intraluminal filling defects to suggest central pulmonary embolism. Lungs and pleura: Subtle scattered ground-glass opacities or areas of air trapping seen in the left lung, primarily upper lobe. No pleural effusions or pneumothorax. Central and peripheral airways are patent. Mediastinum: Heart size is normal, without pericardial effusion. Left-sided mediastinal and hilar adenopathy. Mild right hilar adenopathy.. Anatomic variant of right-sided aortic arch. Aberrant, retroesophageal left subclavian artery origin. Esophagus is normal in caliber, without hiatal hernia. Bones and chest wall: No suspicious bony lesions. Ribs and thoracic spine appear intact throughout. Thyroid gland is normal. No axillary or supraclavicular adenopathy. Abdomen: Visualized upper abdomen demonstrates probable cholecystectomy change, diminutive and irregularly shaped spleen, and mild, chronic portacaval adenopathy IMPRESSION: 1. No pulmonary embolus. 2. Subtle ground-glass opacity and/or air trapping, primarily seen in the left lung. This may reflect reactive airways disease, pneumonitis, bronchitis, less likely interstitial lung disease. 3. Bilateral hilar and mediastinal adenopathy, more so left than right, possibly reactive, but present previously. Clinical correlation is recommended. 4. Normal variant right-sided aortic arch and normal variant branching great vessels. 5. Concordant with preliminary report. Dictated by: Pam Dalal M.D. on 05/26/2020 at 8:54 Approved by: Pam Dalal M.D. on 05/26/2020 at 9:03
[2020-05-25 21:02] LABS: NT-proBNP (BNP-Adult 18+) 106 pg/mL (<125); Troponin I < 0.012 ng/mL (0.01-0.034)
[2020-05-25 21:07] LABS: Procalcitonin < 0.05 ng/mL (<0.5)
[2020-05-25] MEDS: ACETAMINOPHEN 325 MG TABLET 975 MG PO (22:14)
[2020-05-25 23:17] LABS: COVID19 -Nasal RAPID Negative (Negative)
[2020-05-26] VITALS (9 sets, daily range): BP systolic 96–128; BP diastolic 61–81; PULSE 61–76; RESP 14–35; O2SAT 96–98
--- NOTE | 2020-05-26 | DI.US.S_ITS ---
PROCEDURE: US RENAL COMPLETE INDICATIONS: FLANK PAIN AND HEMATURIA TECHNIQUE: Real-time scanning was performed of the kidneys and bladder, with image documentation. COMPARISON: None. FINDINGS: Kidneys: Kidneys are normal in size. Right kidney measures 11.4 cm long; left kidney measures 11.4 cm long. Right renal cortical thickness is 1.2 cm; left renal cortical thickness is 1.8 cm. Renal cortical echotexture is normal. No hydronephrosis or nephrolithiasis. No suspicious solid mass lesions. Bladder: Pre-void bladder volume is 58 mL. Post-void residual is for mL. Pre-void images demonstrate no intraluminal masses or stones. On pre-void images, neither ureteral jets are noted with color Doppler interrogation. (Of note, ureteral jets may not be detectable in up to 25% of cases due to insufficient differences in specific gravity between ureteral and bladder urine). Miscellaneous: No free pelvic fluid. IMPRESSION: Normal renal ultrasound without evidence of obstructive uropathy. Concordant with preliminary report. Dictated by: Pam Dalal M.D. on 05/26/2020 at 9:05 Approved by: Pam Dalal M.D. on 05/26/2020 at 9:06
[2020-05-26] MEDS: HYDROCODONE/ACET 5/325 PREPACK 1 BOTTLE MISC (02:28)
[2020-05-26] MEDS: ONDANSETRON 4 MG ODT PREPACK 1 BOTTLE MISC (02:28)
== END 2020-05-26 02:33 | disposition home or self-care (01) ==
PROVIDERS: Emergency Provider Emergency Medicine; PCP Physician Assistant
DX: R06.00 Dyspnea, unspecified (principal); R10.9 Unspecified abdominal pain; R31.9 Hematuria, unspecified; M54.6 Pain in thoracic spine; R05 Cough; R50.9 Fever, unspecified; E03.9 Hypothyroidism, unspecified; I26.99 Other pulmonary embolism without acute cor pulmonale; Z79.01 Long term (current) use of anticoagulants; E66.01 Morbid (severe) obesity due to excess calories; Z68.41 Body mass index [BMI] 40.0-44.9, adult; Z20.822 Contact with and (suspected) exposure to COVID-19
CPT/HCPCS: 36415; 71045; 71275; 76770; 80048; 81003; 82550; 83605; 83735; 83880; 84145; 84484; 85025; 87040; 87635; 93005; 96360; 96361; 99284; C9803; Q9967